=== PATIENT | female | born 1980 | race Caucasian/White ===

== ENCOUNTER → 2018-01-05 09:10 | Outpatient (CLI) | payer OTHER, SELFPAY ==
[2018-01-05 10:35] LABS: Anion Gap 7 (5-15); BUN 8 mg/dL (7-18); BUN/Creat Ratio 8.3 RATIO (10-20); Calcium,Total 8.3 mg/dL (8.5-10.1); Chloride 104 mmol/L (98-107); Cholesterol 164 mg/dL (200); Creatinine, Serum 0.96 mg/dL (0.55-1.02); EST Glomerular Filtration Rate 69 mL/min (>60); Est Glom Filt Rate - Afr Amer 84 mL/min (>60); Glucose 75 mg/dL (74-106); High Density Lipoprotein 68 mg/dL; Potassium 3.8 mmol/L (3.5-5.1); Sodium Level 137 mmol/L (136-145); Triglycerides 78 mg/dL; Very Low Density Lipoprotein 16 mg/dL (5-40)
[2018-01-06 15:47] LABS: Hemoglobin A1c 5.1 % (4.2-6.3)
== END ==
PROVIDERS: Family Provider Family Medicine; PCP Family Medicine; Visit Provider Family Medicine
DX: Z01.419 Encounter for gynecological examination (general) (routine) without abnormal findings (principal)
CPT/HCPCS: 36415; 80048; 80061; 83036

== ENCOUNTER 2018-02-15 11:39 | Outpatient (RCR) | payer OTHER, SELFPAY ==
--- NOTE | 2018-02-15 13:04 | HP.PTEVAL_ITS ---
Patient's Visit Information LEWIS MERAZ is a 37 year old F referred to Physical Therapy by Montserrat Leon MD with a diagnosis of muscle pain R leg pain. Date of Evaluation: 02/15/18 Physical Therapist: Neda Vega - Visit Plan Frequency: 1x/Week Duration: 4 Weeks Plan: 1X/ week per pt request with HEP to foam roll, stretch calf , HS and Quad , and strengthen R LE. May use massage and US as well. If pain does not subside witht he above look to assess LB and radicuopathy - Subjective Subjective: Last fall (around Nov) when started roller skating pt was getting a pain up the R lateral side of the calf and then from the knee up to the hip. Pt tries to do stretches and it comes and goes. She noticed that roller skating and skipped 2 weeks and she did not notice that it gotten any better. She noticed that had some discomfort with pushing pedel down but never really any issue. No N&T. Doesn't seem to be different with higher shoes but it feels better with better shoes. No trouble with bending and extending her knee. No meds and no x-rays. She does quite a bit of exercising and does a lot of standing and it bothers it the same. Somedays she does not feel it. She had a massage yesterday and Debo did not mention anything. - Pain R lateral lower leg pain Pain Intensity (Out of 10): 6 Pain Intensity Range: 8 - Objective Gait: normal gait pattern. Able to heel and toe raise. Palpation along the R lateral joint line and fibular head on the R side. Pt had a ffeling of discomfort with HS curls with green t-band X 10 and foam rolling lateral side of leg on the R. Calf tender points noted with foam rolling the calf. LE MMT: hip flex B 4/5, knee ext B 4+/5, knee flex B 4/5, B hip abd 4/5. tight gastroc complex B - Goals Goal 1:: I HEP Goal Time Frame: 2-4 Weeks Goal 2:: Be able to complete ADL's with no calf pain Goal Time Frame: 2-4 Weeks Goal 3:: No tenderness with palpation over the R lateral calf Goal Time Frame: 2-4 Weeks - Rehabilitation Potential Rehabilitation Potential: Good - Anticipated Interventions Patient/Client Instruction: Educate patient on: Condition, Plan of Care For the Purpose of:: To decrease pain, To decrease swelling/inflammation, To increase ROM, To improve nutrient delivery to tissue, To increase oxygenation perfusion, To improve muscle performance and motor function, To improve ability to perform ADL's, To increase tolerance to activity/condition/position Therapeutic Exercise to Include: Strength training, Endurance training, Flexibilty training, Gait and locomotor training, Passive ROM, Active ROM For the Purpose of:: To decrease pain, To decrease swelling/inflammation, To increase ROM, To improve nutrient delivery to tissue, To increase oxygenation perfusion, To improve muscle performance and motor function, To improve ability to perform ADL's, To increase tolerance to activity/condition/position, To improve performance and independence with ADL's Manual Therapy Techniques to Include: Passive ROM, Soft tissue mobilization For the Purpose of:: To decrease pain, To decrease swelling/inflammation, To increase ROM, To improve nutrient delivery to tissue IF ES: Yes Cryotherapy (ice pack, ice massage): Yes Thermo therapy (hot pack): Yes Ultrasound (thermal/non thermal): Yes For the Purpose of:: To decrease pain, To decrease swelling/inflammation, To increase ROM, To improve nutrient delivery to tissue Thank you for the opportunity to evaluate your patient. For Medicare and Medicare HMO plans, please review the plan of care and approve it. It will need to be FAXED BACK to us at [phone] for Medicare purposes. Please let me know if there are questions or concerns regarding this plan of care. Physician Signature: Date:
--- NOTE | 2018-06-30 12:52 | HP.PT.NRP ---
HP - Discharge Summary (1) - Patient Information LEWIS MERAZ was seen in my office for initial evaluation on 02/15/18. The following Plan of Care was established for this patient: Initial Frequency: 1x/Week Initial Duration: 4 Weeks - Anticipated Interventions Patient/Client Instruction: Educate patient on: Condition, Plan of Care For the Purpose of:: To decrease pain, To decrease swelling/inflammation, To increase ROM, To improve nutrient delivery to tissue, To increase oxygenation perfusion, To improve muscle performance and motor function, To improve ability to perform ADL's, To increase tolerance to activity/condition/position Therapeutic Exercise to Include: Strength training, Endurance training, Flexibilty training, Gait and locomotor training, Passive ROM, Active ROM For the Purpose of:: To decrease pain, To decrease swelling/inflammation, To increase ROM, To improve nutrient delivery to tissue, To increase oxygenation perfusion, To improve muscle performance and motor function, To improve ability to perform ADL's, To increase tolerance to activity/condition/position, To improve performance and independence with ADL's Manual Therapy Techniques to Include: Passive ROM, Soft tissue mobilization For the Purpose of:: To decrease pain, To decrease swelling/inflammation, To increase ROM, To improve nutrient delivery to tissue IF ES: Yes Cryotherapy (ice pack, ice massage): Yes Thermo therapy (hot pack): Yes Ultrasound (thermal/non thermal): Yes For the Purpose of:: To decrease pain, To decrease swelling/inflammation, To increase ROM, To improve nutrient delivery to tissue This patient was last seen in our office 02/15/18. Pertinent comments regarding their Physical therapy will appear below: DC PT as pt did not re-schedule after initial eval. At this point I will be discontinuing this patient from physical therapy. I would be happy to see this patient again in the future if found appropriate by the physician. Thank you! Neda Vega
== END 2018-02-15 19:00 | disposition home or self-care (01) ==
LOC: PT 11:39
PROVIDERS: Family Provider Family Medicine; PCP Family Medicine; Visit Provider Family Medicine
DX: M79.604 Pain in right leg (principal)
CPT/HCPCS: 97161

== ENCOUNTER → 2018-10-05 12:01 | Outpatient (CLI) | payer OTHER, SELFPAY ==
[2018-10-09 10:33] LABS: HPV Reflexed? NOT INDICATED
--- OUTSIDE RECORDS SUMMARY | 2018-11-21 07:17 | XMS RPT_ITS ---
:1980 Author Organization OHIP Care Team Providers Name Role Phone Yudith Beauchamp Attending Unavailable Yudith Beauchamp Referring Unavailable Jollkaz, Montserrat Primary Care Unavailable DOCTOR, OUT OF TOWN Attending Unavailable Jostellaiff, Montserrat Primary Care Unavailable Jolliff, Montserrat Attending Unavailable Jolliff, Montserrat Primary Care Unavailable Jolliff, Montserrat Referring Unavailable Jolliff, Montserrat Attending Unavailable Jolliff, Montserrat Primary Care Unavailable PROBLEMS PROBLEMS DATE TYPE CONDITION / CODE ATTENDING STATUS SOURCE 10/05/2018 Unknown Z12.4 - Yudith Beauchamp Active [place] Encounter for Community screening for Hospital malignant Repository neoplasm of cervix / Z12.4(ICD-10) 06/30/2018 Unknown M79.604 - Pain Montserrat Leon Active [place] in right leg / Community M79.604(ICD-10) Hospital Repository PROCEDURES PROCEDURES No Procedure Records FoundRESULTS RESULTS PROGRESS Observed: 11/03/2018 Status: COMPLETED Source: [place] 8:48 AM [facility] REPOSITORY HNO ID: [id number] Author: Linette Mendoza) Gissel Service: (none) Author Type: Nurse Practitioner Type: Progress Notes Filed: 11/03/2018 8:54 AM Note Text: Subjective HPI Pearl Meraz is a 38 year old female who presents with bilateral eye redness and drainage. Eyes feel itchy. Her grandmother had pinkeye this week. Review of Systems Constitutional: Negative. Negative for fever. HENT: Negative for congestion and sore throat. Eyes: Positive for discharge and redness. Respiratory: Negative. Negative for cough. BP 120/80 Pulse 74 Temp 36.9 ?C (98.4 ?F) (Left Tympanic) Resp 16 Wt 67.1 kg (148 lb) SpO2 99% No past medical history on file. PAST SURGICAL HISTORY Procedure Laterality Date - PAST SURGICAL HISTORY OF appendectomy ALLERGIES Patient has no known allergies. MEDICATIONS ETHINYL ESTRADIOL/DROSPIRENONE (MARIAN 28 ORAL) Take by mouth. benzonatate (TESSALON PERLE) 100 mg capsule Take 1 capsule by mouth three times daily as needed for Cough. trimethoprim-polymyxin eye drops (POLYTRIM) ophthalmic solution Use 1 Drop in the right eye four times daily. venlafaxine XR (EFFEXOR XR) 150 mg 24 hr capsule Take 150 mg by mouth once daily. FAMILY HISTORY Problem Relation Age of Onset - Heart Maternal Grandmother - Heart Maternal Grandfather Social History Substance Use Topics - Smoking status: Never Smoker - Smokeless tobacco: Never Used - Alcohol use No Objective Physical Exam Constitutional: She is well-developed, well-nourished, and in no distress. HENT: Right Ear: Tympanic membrane, external ear and ear canal normal. Left Ear: Tympanic membrane, external ear and ear canal normal. Nose: Nose normal. No rhinorrhea. Mouth/Throat: Uvula is midline, oropharynx is clear and moist and mucous membranes are normal. No posterior oropharyngeal edema or posterior oropharyngeal erythema. Eyes: Pupils are equal, round, and reactive to light. EOM are normal. Right eye exhibits discharge. Right conjunctiva is injected. Left conjunctiva is injected. Neurological: She is alert. Skin: Skin is warm and dry. Nursing note and vitals reviewed. ASSESSMENT/PLAN: 1. Acute bacterial conjunctivitis of right eye - ICD9: 372.03, ICD10: H10.31 - see medication orders - course and contagiousness issues discussed, including hand washing. - Instructed to call if high fever, development of periorbital redness or swelling, eye pain, visual changes, concerns or if symptoms persist. - POLYMYXIN B SULFATE 10,000 UNIT-TRIMETHOPRIM 1 MG/ML EYE DROPS - Follow-up with your PCP in 3-5 days if symptoms have not improved or sooner if symptoms worsen - Discussed red flags and need for immediate medical evaluation if any occur. - Discussed supportive care treatment with fluids, rest and analgesia. - Discussed expected course of illness Linette Chauhan APRN.CNP CNOV Observed: 11/03/2018 Status: COMPLETED Source: [place] 8:45 AM [facility] REPOSITORY Office Visit (WSTR) KTPEARL Hannah ([id number]) 1980 F Date Time Provider Department 11/03/18 8:45 AM LINETTE CHAUHAN ([facility]) [facility] During your visit today, we recorded the following information about you: Temperature Pulse Respiration Blood pressure 98.4 degrees 74/minute 16/minute 120/80 Weight 67.1 kg Linette Chauhan APRN.CNP 11/03/2018 8:54 AM Signed Subjective HPI Pearlebony Meraz is a 38 year old female who presents with bilateral eye redness and drainage. Eyes feel itchy. Her grandmother had pinkeye this week. Review of Systems Constitutional: Negative. Negative for fever. HENT: Negative for congestion and sore throat. Eyes: Positive for discharge and redness. Respiratory: Negative. Negative for cough. BP 120/80 Pulse 74 Temp 36.9 ?C (98.4 ?F) (Left Tympanic) Resp 16 Wt 67.1 kg (148 lb) SpO2 99% No past medical history on file. PAST SURGICAL HISTORY Procedure Laterality Date - PAST SURGICAL HISTORY OF appendectomy ALLERGIES Patient has no known allergies. MEDICATIONS ETHINYL ESTRADIOL/DROSPIRENONE (MARIAN 28 ORAL) Take by mouth. benzonatate (TESSALON PERLE) 100 mg capsule Take 1 capsule by mouth three times daily as needed for Cough. trimethoprim-polymyxin eye drops (POLYTRIM) ophthalmic solution Use 1 Drop in the right eye four times daily. venlafaxine XR (EFFEXOR XR) 150 mg 24 hr capsule Take 150 mg by mouth once daily. FAMILY HISTORY Problem Relation Age of Onset - Heart Maternal Grandmother - Heart Maternal Grandfather Social History Substance Use Topics - Smoking status: Never Smoker - Smokeless tobacco: Never Used - Alcohol use No Objective Physical Exam Constitutional: She is well-developed, well-nourished, and in no distress. HENT: Right Ear: Tympanic membrane, external ear and ear canal normal. Left Ear: Tympanic membrane, external ear and ear canal normal. Nose: Nose normal. No rhinorrhea. Mouth/Throat: Uvula is midline, oropharynx is clear and moist and mucous membranes are normal. No posterior oropharyngeal edema or posterior oropharyngeal erythema. Eyes: Pupils are equal, round, and reactive to light. EOM are normal. Right eye exhibits discharge. Right conjunctiva is injected. Left conjunctiva is injected. Neurological: She is alert. Skin: Skin is warm and dry. Nursing note and vitals reviewed. ASSESSMENT/PLAN: 1. Acute bacterial conjunctivitis of right eye - ICD9: 372.03, ICD10: H10.31 - see medication orders - course and contagiousness issues discussed, including hand washing. - Instructed to call if high fever, development of periorbital redness or swelling, eye pain, visual changes, concerns or if symptoms persist. - POLYMYXIN B SULFATE 10,000 UNIT-TRIMETHOPRIM 1 MG/ML EYE DROPS - Follow-up with your PCP in 3-5 days if symptoms have not improved or sooner if symptoms worsen - Discussed red flags and need for immediate medical evaluation if any occur. - Discussed supportive care treatment with fluids, rest and analgesia. - Discussed expected course of illness AMBER Jean APRN.CNP 11/03/2018 8:51 AM Signed ASSESSMENT/PLAN: 1. Acute bacterial conjunctivitis of right eye - ICD9: 372.03, ICD10: H10.31 - see medication orders - course and contagiousness issues discussed, including hand washing. - Instructed to call if high fever, development of periorbital redness or swelling, eye pain, visual changes, concerns or if symptoms persist. - POLYMYXIN B SULFATE 10,000 UNIT-TRIMETHOPRIM 1 MG/ML EYE DROPS - Follow-up with your PCP in 3-5 days if symptoms have not improved or sooner if symptoms worsen - Discussed red flags and need for immediate medical evaluation if any occur. - Discussed supportive care treatment with fluids, rest and analgesia. - Discussed expected course of illness Linette Chauhan APRN.KEYLINER CONJUNCTIVITIS GENERAL INFORMATION: Conjunctivitis is also known as pink eye. It is an irritation of the underside of the eyelid and the white part of the eye. Conjunctivitis can be caused by infection, chemical irritation, or allergy. If infectious, it is very contagious. INSTRUCTIONS: The doctor has prescribed antibiotic drops or ointment. Use them as prescribed. Do not touch the dropper to the eye. Throw out the medication after completing treatment. If the doctor only prescribed the medication to be placed in one eye, and the other eye starts to bother you with the same symptoms, you may treat it in the same fashion. To ease discomfort, apply a warm or cool clean washcloth to your eye several times a day for 10 to 20 minutes. Gently wipe away discharge from the eyes with tissues. Wash your hands often with soap and use paper towels to dry them. Do not share towels, washcloths, or pillows. This could spread infection. Do not use eye make-up until the infection has resolved. Keep contact lenses out of eyes until the irritation is gone. Discard any eye make-up which you may have contaminated before the infection was diagnosed, and any eye make-up older than one year. Children should not return to school or daycare until the eye is no longer pink. Do not drive or operate machinery if your vision is blurred. Wear sunglasses if your eyes are sensitive to the light. CONTACT YOUR DOCTOR IF YOU OR YOUR CHILD NOTICE: *The eye is still pink 3 days after starting treatment with medicine. *Pain in the eye increases. *The redness is spreading. *Vision becomes blurred. *You have a temperature over 100.5 F (38 C). Referring Provider: SELF [200] Allergies As of Date: 11/03/2018 (No Known Allergies) Date Reviewed: 11/03/2018 Reviewed by: Linette ([facility]) Gissel - Fully Assessed Reason for Visit: Eye Problem [43] Visit Diagnosis:Acute bacterial conjunctivitis of right eye [H10.31] Order(s):trimethoprim-polymyxin eye drops (POLYTRIM) ophthalmic solutionUse 1 Drop in both eyes four times daily.Disp: 1 BottleRfl: 0 Prescriptions as of 11/03/2018 Sig: MARIAN 28 ORAL Take by mouth. 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 Acute bacterial conjunctivitis of right eye - ICD9: 372.03, ICD10: H10.31 - see medication orders - course and contagiousness issues discussed, including hand washing. - Instructed to call if high fever, development of periorbital redness or swelling, eye pain, visual changes, concerns or if symptoms persist. - POLYMYXIN B SULFATE 10,000 UNIT-TRIMETHOPRIM 1 MG/ML EYE DROPS - Follow-up with your PCP in 3-5 days if symptoms have not improved or sooner if symptoms worsen - Discussed red flags and need for immediate medical evaluation if any occur. - Discussed supportive care treatment with fluids, rest and analgesia. - Discussed expected course of illness Linette Chauhan APRN.[facility] CONJUNCTIVITIS GENERAL INFORMATION: Conjunctivitis is also known as pink eye. It is an irritation of the underside of the eyelid and the white part of the eye. Conjunctivitis can be caused by infection, chemical irritation, or allergy. If infectious, it is very contagious. INSTRUCTIONS: The doctor has prescribed antibiotic drops or ointment. Use them as prescribed. Do not touch the dropper to the eye. Throw out the medication after completing treatment. If the doctor only prescribed the medication to be placed in one eye, and the other eye starts to bother you with the same symptoms, you may treat it in the same fashion. To ease discomfort, apply a warm or cool clean washcloth to your eye several times a day for 10 to 20 minutes. Gently wipe away discharge from the eyes with tissues. Wash your hands often with soap and use paper towels to dry them. Do not share towels, washcloths, or pillows. This could spread infection. Do not use eye make-up until the infection has resolved. Keep contact lenses out of eyes until the irritation is gone. Discard any eye make-up which you may have contaminated before the infection was diagnosed, and any eye make-up older than one year. Children should not return to school or daycare until the eye is no longer pink. Do not drive or operate machinery if your vision is blurred. Wear sunglasses if your eyes are sensitive to the light. CONTACT YOUR DOCTOR IF YOU OR YOUR CHILD NOTICE: *The eye is still pink 3 days after starting treatment with medicine. *Pain in the eye increases. *The redness is spreading. *Vision becomes blurred. *You have a temperature over 100.5 F (38 C). Prescriptions ordered this encounter Disp Refills Start End POLYMYXIN B SULFATE 10,000 UNIT-TRIM* 1 Azar* 0 11/03/2018 Route: BOTH EYES Sig: Use 1 Drop in both eyes four times daily. Medications Discontinued During This Encounter benzonatate (TESSALON PERLE) 100 mg * 30 c* 0 08/24/2016 11/03/2018 Route: ORAL Sig: Take 1 capsule by mouth three times daily as needed for Cough. Disc: Reason for discontinue is not on file. venlafaxine XR (EFFEXOR XR) 150 mg 2* 11/03/2018 Class: Historical Med Route: ORAL Sig: Take 150 mg by mouth once daily. Disc: Reason for discontinue is not on file. trimethoprim-polymyxin eye drops (PO* 1 Azar* 0 01/01/2016 11/03/2018 Route: RIGHT EYE Sig: Use 1 Drop in the right eye four times daily. Disc: Reason for discontinue is not on file. Encounter Status:Closed by LINETTE CHAUHAN on 11/03/18 PAP I-G W/RFX HRHPV Collected: 10/05/2018 Status: F Source: [place] 10:50 AM [facility] REPOSITORY Order Comment: CYTOLOGY INFORMATION: - CLINICAL INFORMATION: - DATE LMP/MENOPAUSE: [id number] LMP - COLLECTION VIAL: Thin Prep Vial - CAMP HOUSEKEEPER SOURCE: CERVICAL/ENDOCERVICAL - COLLECTION TECHNIQUE: BRUSH/SPATULA Specimen Comment: [id number] Specimen Comment: Source.............Cervix;Endocervix Specimen Comment: LMP / Prev Treat...EIP=[id number] Specimen Comment: No. of containers..01 ThinPrep Vial TYPE CODE TESTS RESULT OUT OF RANGE REFERENCE UNITS LAB L7400.0800 . Normal DIAGN Comment Result Comment: NEGATIVE FOR INTRAEPITHELIAL LESION AND MALIGNANCY. THIS SPECIMEN WAS RESCREENED PART OF OUR LAW WRITER PROGRAM. LAB L7400.0900 . Normal ADEQ Comment Result Comment: Satisfactory for evaluation. Endocervical and/or squamous metaplastic cells (endocervical component) are present. Areas of partially obscuring inflammtory exudate are present. LAB L7400.1400 . Normal PERFORM Comment Result Comment: Morris Yates, Figure Clerk (ASCP) LAB L7400.1500 . Normal QC Comment REV Result Comment: Sabra Wilkinson, Supervisory Figure Clerk (ASCP) LAB L7400.2575 . Normal TEST METHOD Comment Result Comment: This liquid based ThinPrep(R) pap test was screened with the use of an image guided system. LAB L7400.2600 . Normal . COMM LAB L7400.2700 . Normal PAPSMR Comment Result Comment: The Pap smear is a screening test designed to aid in the detection of premalignant and malignant conditions of the uterine cervix. It is not a diagnostic procedure and should not be used as the sole means of detecting cervical cancer. Both false-positive and false-negative reports do occur. LAB L7400.2800 . Normal HPV RFLX Comment Result Comment: The HPV DNA reflex criteria were not met with this specimen result therefore, no HPV testing was performed. Performed at: [address] [id number] Trim Mounter: Claire Dickson MD, Phone: [phone] Performed By: #### L7400.0350 #### [facility] (refer to report for specific site) refer to report for address and phone number PROGRESS Observed: 09/08/2018 Status: COMPLETED Source: [place] 8:27 AM [facility] REPOSIT[facility] O ID: [id number] Author: Kristian (Rn) BELGICA Casillas Service: (none) Author Type: Registered Nurse Type: Progress Notes Filed: 09/08/2018 8:29 AM Note Text: 38 year old female here for INACTIVATED INFLUENZA VACCINE. 1125-8415 Season Patient is identified by name and date of : Yes [] CONTRAINDICATIONS color enhanced section Age less than 6 months? No Allergy to eggs, chicken, chicken feathers, or chicken dander? No Allergy to thimerosal (a preservative) or formaldehyde, gelatin? No History of severe reaction to any vaccine component or a previous dose of influenza vaccination? No History of Guillain-Parsons Syndrome within 6 weeks after a previous influenza vaccine? No Patient is not moderately or severely ill? No Current temperature greater or equal to 100.4F? No History of Bone Marrow Transplant prior 6 months or solid organ transplant in the past 3 months ? No History of fainting after a prior injection or medical procedure? No- ? If patient has fainted in the past, the CDC recommends sitting or lying down for 15 minutes after the vaccination. [] VERIFICATION color enhanced section Was the answer Yes for any of the above contraindications? No contraindications present. Acceptable to proceed with vaccine. Patient/guardian agrees the above answers are true to the best of their knowledge? Yes Flu vaccine information sheet given? Yes [facility]izations admin[facility] today. Patient age: [age] year old For The 8770-1795 Flu Season 6-35 months old: Fluzone 0.25 ml - IM (Preservative Free) 3 years of age: Fluzone 0.5 ml - IM (Preservative Free) 3 years and older: Fluzone 0.5 ml- IM-(with Preservatives) 65+ years old: 2-49 years old Fluzone High-Dose 0.5 ml - IM (Preservative Free) FLUMIST- intranasal REMEMBER: If patient is less than 9 years of age and this is the first vaccine of Influenza to be received in any flu season, they should receive a second dose in one months time. CNNURSE Observed: 09/07/2018 Status: COMPLETED Source: [place] 3:00 PM [facility] RE[facility] Nurse Visit (PEDSWS) PEARL MERAZ ([id number]) 1980 F Date Time Provider Department 09/07/18 3:00 PM [facility] During your visit today, we recorded the following information about you: Temperature 99.5 degrees Kristian Casillas, RN, RN 09/08/2018 8:29 AM Signed 38 year old female here for INACTIVATED INFLUENZA VACCINE. 0514-9678 Season Patient is identified by name and date of : Yes [] CONTRAINDICATIONS color enhanced section Age less than 6 months? No Allergy to eggs, chicken, chicken feathers, or chicken dander? No Allergy to thimerosal (a preservative) or formaldehyde, gelatin? No History of severe reaction to any vaccine component or a previous dose of influenza vaccination? No History of Guillain-Parsons Syndrome within 6 weeks after a previous influenza vaccine? No Patient is not moderately or severely ill? No Current temperature greater or equal to 100.4F? No History of Bone Marrow Transplant prior 6 months or solid organ transplant in the past 3 months ? No History of fainting after a prior injection or medical procedure? No- ? If patient has fainted in the past, the CDC recommends sitting or lying down for 15 minutes after the vaccination. [] VERIFICATION color enhanced section Was the answer Yes for any of the above contraindications? No contraindications present. Acceptable to proceed with vaccine. Patient/guardian agrees the above answers are true to the best of their knowledge? Yes Flu vaccine information sheet given? Yes See immunization activity in [facility] for details of immunizations adminstered today. Patient age: [age] year old For The 2968-6376 Flu Season 6-35 months old: Fluzone 0.25 ml - IM (Preservative Free) 3 years of age: Fluzone 0.5 ml - IM (Preservative Free) 3 years and older: Fluzone 0.5 ml- IM-(with Preservatives) 65+ years old: 2-49 years old Fluzone High-Dose 0.5 ml - IM (Preservative Free) FLUMIST- intranasal REMEMBER: If patient is less than 9 years of age and this is the first vaccine of Influenza to be received in any flu season, they should receive a second dose in one months time. Referring Provider: SELF [200] Allergies As of Date: 09/07/2018 (No Known Allergies) Date Reviewed: 08/24/2016 Reviewed by: Shelbie Stacy X Ray Physician - Fully Assessed Reason for Visit: Imm/Inj [58] Cmt: Flu Vaccine Primary Visit Diagnosis:Need for vaccination [Z23] Order(s):INFLUENZA VACCINE QUADRIVALENT AGE 3 YRS PLUS + IM [[id number]] Order #: [id number] Prescriptions as of 09/07/2018 Sig: BENZONATATE 100 MG CAPSULE Take 1 capsule by mouth three* POLYMYXIN B SULFATE 10,000 UN* Use 1 Drop in the right eye f* VENLAFAXINE ER 150 MG CAPSULE* Take 150 mg by mouth once johanna* MARIAN 28 ORAL Take by mouth. 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 [place] [address] Fax REHABILITATION SERVICES INITIAL EVALUATION MR#: [id number] Acct: [id number] Name: PEARL MERAZ Rep #: [id number] : 1980 37 From: Neda Vega MPT Referring Dr.: Montserrat Leon MD Status: REG RCR Insurance: [employer] SELF PAY INSURANCE Patient's Visit Information PEARL MERAZ is a 37 year old F referred to Physical Therapy by Montserrat Leon MD with a diagnosis of muscle pain R leg pain. Date of Evaluation: 02/15/18 Physical Therapist: Neda Vega - Visit Plan Frequency: 1x/Week Duration: 4 Weeks Plan: 1X/ week per pt request with HEP to foam roll, stretch calf , HS and Quad, and strengthen R LE. May use massage and US as well. If pain does not subside witht he above look to assess LB and radicuopathy - Subjective Subjective: Last fall (around Nov) when started roller skating pt was getting a pain up the R lateral side of the calf and then from the knee up to the hip. Pt tries to do stretches and it comes and goes. She noticed that roller skating and skipped 2 weeks and she did not notice that it gotten any better. She noticed that had some discomfort with pushing pedel down but never really any issue. No N AND T. Doesn't seem to be different with higher shoes but it feels better with better shoes. No trouble with bending and extending her knee. No meds and no x-rays. She does quite a bit of exercising and does a lot of standing and it bothers it the same. Somedays she does not feel it. She had a massage yesterday and Debo did not mention anything. - Pain R lateral lower leg pain Pain Intensity (Out of 10): 6 Pain Intensity Range: 8 - Objective Gait: normal gait pattern. Able to heel and toe raise. Palpation along the R lateral joint line and fibular head on the R side. Pt had a ffeling of discomfort with HS curls with green t-band X 10 and foam rolling lateral side of leg on the R. Calf tender points noted with foam rolling the calf. LE MMT: hip flex B 4/5, knee ext B 4+/5, knee flex B 4/5, B hip abd 4/5. tight gastroc complex B - Goals Goal 1:: I HEP Goal Time Frame: 2-4 Weeks Goal 2:: Be able to complete ADL's with no calf pain Goal Time Frame: 2-4 Weeks Goal 3:: No tenderness with palpation over the R lateral calf Goal Time Frame: 2-4 Weeks - Rehabilitation Potential Rehabilitation Potential: Good - Anticipated Interventions Patient/Client Instruction: Educate patient on: Condition, Plan of Care For the Purpose of:: To decrease pain, To decrease swelling/inflammation, To increase ROM, To improve nutrient delivery to tissue, To increase oxygenation perfusion, To improve muscle performance and motor function, To improve ability to perform ADL's, To increase tolerance to activity/condition/position Therapeutic Exercise to Include: Strength training, Endurance training, Flexibilty training, Gait and locomotor training, Passive ROM, Active ROM For the Purpose of:: To decrease pain, To decrease swelling/inflammation, To increase ROM, To improve nutrient delivery to tissue, To increase oxygenation perfusion, To improve muscle performance and motor function, To improve ability to perform ADL's, To increase tolerance to activity/condition/position, To improve performance and independence with ADL's Manual Therapy Techniques to Include: Passive ROM, Soft tissue mobilization For the Purpose of:: To decrease pain, To decrease swelling/inflammation, To increase ROM, To improve nutrient delivery to tissue IF ES: Yes Cryotherapy (ice pack, ice massage): Yes Thermo therapy (hot pack): Yes Ultrasound (thermal/non thermal): Yes For the Purpose of:: To decrease pain, To decrease swelling/inflammation, To increase ROM, To improve nutrient delivery to tissue Thank you for the opportunity to evaluate your patient. For Medicare and Medicare HMO plans, please review the plan of care and approve it. It will need to be FAXED BACK to us at [phone] for Medicare purposes. Please let me know if there are questions or concerns regarding this plan of care. Physician Signature: Date: <Electronically signed by Neda Vega MPT> 02/17/18 1209 CC: Montserrat Leon MD Signed For Medicare only, by signing this I certify the plan of care. Physicians Signature Date HEMOGLOBIN A1C Collected: 01/06/2018 Status: F Source: PAGE 9:12 AM [facility] REPOSITORY Order Comment: PLEASE ADD A1C TO BLOOD DRAWN 01/05/18 PER XTRA PURPLE WAS DRAWN AND SHOULD BE STORED IN THE LAB.JV TYPE CODE TESTS RESULT OUT OF RANGE REFERENCE UNITS LAB L501.9985 4.2-6.3 % Normal HGB A1C 5.1 Performed By: #### L501.9985 #### [facility] [address], [address] BASIC METABOLIC Collected: 01/05/2018 Status: F Source: PAGE PROFILE (BMP) 9:12 AM [facility] REPOSITORY TYPE CODE TESTS RESULT OUT OF RANGE REFERENCE UNITS LAB L501.0100 74-106 mg/dL Normal GLU 75 Result Comment: Please note revised GLUCOSE reference range effective 2017. LAB L501.1000 7-18 mg/dL Normal BUN 8 LAB L501.1100 0.55-1.02 mg/dL Normal CREAT,SERUM 0.96 Result Comment: The validity of the calculated GFR AND GFRAA in patients over 70 years has not been determined. Clinical correlation is essential. LAB L501.1110 >60 mL/min Normal EST GFR 69 Result Comment: Non- GFR Calc LAB L501.1115 >60 mL/min Normal EST GFR - AA 84 Result Comment: GFR Calc LAB L501.1300 10-20 RATIO Low BUN/CRE 8.3 LAB L501.2200 8.5-10.1 mg/dL Low CA 8.3 LAB L501.5300 136-145 mmol/L Normal NA 137 LAB L501.5600 3.5-5.1 mmol/L Normal K 3.8 LAB L501.5900 98-107 mmol/L Normal CL 104 LAB L501.6100 21.0-32.0 mmol/L Normal CO2 26.0 LAB L501.6200 5-15 Normal GAP 7 Performed By: #### L500.2500, L500.4100 #### [facility] [address] [place], [address] LIPID PROFILE Collected: 01/05/2018 Status: F Source: BROUSSARD 9:12 AM [facility] REPOSITORY TYPE CODE TESTS RESULT OUT OF RANGE REFERENCE UNITS LAB L501.4900 200 mg/dL Normal CHOL 164 Result Comment: <200 mg/dL Desirable 200-240 mg/dL Borderline >240 mg/dL High Risk LAB L501.5000 mg/dL Normal TRIG 78 Result Comment: The drugs N-Acetylcysteine and Metamizole may falsely depress this assay. Serum Triglycerides Reference Interval Normal <150 mg/dL Borderline high 150 - 199 mg/dL High 200 - 499 mg/dL Very High > or = 500 mg/dL LAB L501.6400 mg/dL Normal HDL 68 Result Comment: The drugs N-Acetylcysteine and Metamizole may falsely depress this assay. Reference Range HDL <40 mg/dL Low HDL Cholesterol HDL >or= 60 mg/dL High HDL Cholesterol LAB L501.6500 0-130 mg/dL Normal LDL 80 LAB L501.6600 5-40 mg/dL Normal VLDL 16 Performed By: #### L500.2500, L500.4100 #### [facility] [address] [facility], [address] ALLERGIES ALLERGIES DATE TYPE / CODE NAME / CODE REACTION SEVERITY SOURCE Drug NO KNOWN [facility] Class/00980 ALLERGIES [address] [place] 1003(SNOMED Repository CT) ENCOUNTERS ENCOUNTERS ADMIT/DISCHARGE ACCOUNT ADMITTING ENCOUNTER LOCATION SOURCE NUMBER CLASS 11/03/2018/11/03/19 [id number] Ambulatory [place] [facility] Repository 10/31/2018 [id number] [facility] ing:MASS Repository 10/05/2018 [id number] [facility] ing:LABSPEC Repository 09/07/2018/09/11/20 [id number] Ambulatory [place] [facility] Repository 02/15/2018/02/16/[id number] ing:PT Repository 01/05/2018 [id number] [facility] ing:MFPLAB Repository PAYERS PAYERS ENCOUNTER GUARANTOR PAYER SUBSCRIBER SOURCE 10/31/2018 MICHELLE N Primary NOT GIVENUNK [address] [id number] Insurance:SELF PAY [place], [place] Number: Effective Repository [id number]: ([phone]) Date:2016-11-15 [phone] () 10/05/2018 MICHELLE N Primary MICHELLE N [place] [id number] Insurance:CORESOURCEP FOXXDOB: [facility] [place]: [id number] [id number] Repository [address]Aat: ([phone]) Date:[id number] [phone] (HP) [address]. [address]RIAN SOLIZ [id number]: 10/05/2018 Secondary NOT GIVENUNK [place] Insurance:SELF PAY [facility] Number: Effective Repository Date:2018-10-05 02/15/2018 MICHELLE N Primary MICHELLE N [place] [id number] Insurance:CORESOURCEP FOXXDOB: [facility] [place]: [id number] [id number] Repository [address]Hif: ([phone]) Date:[id number] [phone] (HP) [address] [id number]: 02/15/2018 Secondary NOT GIVENUNK [place] Insurance:SELF PAY [facility] Number: Effective Repository Date:2018-01-04 01/05/2018 MICHELLE N Primary MICHELLE N [place] [id number] Insurance:CORESOURCEP FOXXDOB: [facility] Number: [id number] [id number] Repository [address]Yhb: ([phone]) Date:[id number] [phone] () [address] [id number]: 01/05/2018 Secondary NOT GIVENUNK [place] Insurance:SELF PAY [facility] Number: Effective Repository Date:2018-01-05
== END ==
PROVIDERS: Family Provider Family Medicine; PCP Family Medicine; Referring Provider Obstetrics & Gynecology; Visit Provider Obstetrics & Gynecology
DX: Z12.4 Encounter for screening for malignant neoplasm of cervix (principal)
CPT/HCPCS: 88175; G0145

== ENCOUNTER → 2019-10-10 15:22 | Outpatient (CLI) | payer OTHER, SELFPAY ==
[2019-10-16 14:07] LABS: Age Gdln ACOG Testing 30-65 (.)
[2019-10-16 14:38] LABS: HPV APTIMA, High Risk Negative (Negative); HPV Reflexed? YES, CHARGE PATIENT
== END ==
PROVIDERS: Visit Provider Obstetrics & Gynecology
DX: Z12.4 Encounter for screening for malignant neoplasm of cervix (principal)
CPT/HCPCS: 87624; 88175; G0145

== ENCOUNTER 2019-12-24 14:14 | Emergency (ER) | payer OTHER, SELFPAY ==
[2019-12-24 14:15] VITALS: BP 127/81; PULSE 94; RESP 14; TEMP 37.1; O2SAT 99; BMI 28.7
--- NOTE | 2019-12-24 14:36 | VDUE_ITS ---
Reason For Study: Swelling Right Proximal Left Proximal Right jugular vein is spontaneous, widely Left jugular vein is spontaneous, widely patent, phasic, with no intraluminal patent, phasic, with no intraluminal echogenicity noted. echogenicity noted. Right subclavian vein is spontaneous, widely Left subclavian vein is spontaneous, widely patent, phasic, with no intraluminal patent, phasic, with no intraluminal echogenicity noted. echogenicity noted. Hypoechoic, non vascular structure noted Lt neck (in area of swelling) measuring 1.72cm x 1.0cm. Patient Safety Duplex of jugular veins per Dr. Greer. Interpretation Summary Patent and compressible bilateral internal jugular and subclavian veins without evidence for deep venous thrombosis. Hypoechoic possible cystic nonvascular left neck structure measuring 1.72 x 1 cm Ordering Physician: Salty Greer Referring Physician: Montserrat Leon Performed By: Faye Ni, JAYDON, RVT ?
[2019-12-24 15:00] LABS: Absolute Lymphocyte Count 2.12 X10^3/uL (0.83-4.51); Absolute Neutrophil Count 7.2 X10^3/uL (2.0-7.7); Basophil# 0.06 X10^3/uL; Basophil% 0.6 % (0-1); Eosinophil# 0.11 X10^3/uL; Eosinophils% 1.1 % (0-5); Hematocrit 40.1 % (37-47); Hemoglobin 13.2 g/dL (12.0-15.0); Lymphocyte # 2.12 X10^3/ul (4.0); Lymphocyte % 20.8 % (19-41); Mean Corp Hgb Conc 32.9 g/dL (32-36); Mean Corpuscular Volume 88.1 fL (81-99); Mean Platelet Vol. 10.2 fl (6.2-12.0); Monocyte# 0.66 X10^3/uL; Monocyte% 6.5 % (0-10); NRBC Flagged by Analyzer 0 % (0-5); Neutrophil # 7.23 X10^3/uL (2.7-7.7); Neutrophil % 70.7 % (47-70); Platelet Count 280 K/mm3 (150-450); RBC Distribution Width CV 12.2 % (11.6-14.6); RBC Distribution Width SD 39.3 fl (35.1-43.9); Red Blood Count 4.55 M/mm3 (4.2-5.4); White Blood Count 10.2 K/mm3 (4.4-11.0)
[2019-12-24 15:17] LABS: ALB/GLOB Ratio 0.9 RATIO (0.9-2.4); AST(SGOT) 10 U/L (15-37); Alanine Aminotransfer ALT/SGPT 20 U/L (13-56); Albumin, Serum 3.1 g/dL (3.2-5.0); Alkaline Phosphatase 44 U/L (45-117); Anion Gap 4 (5-15); BUN 16 mg/dL (7-18); BUN/Creat Ratio 15.8 RATIO (10-20); Calcium,Total 8.8 mg/dL (8.5-10.1); Chloride 106 mmol/L (98-107); Creatinine, Serum 1.01 mg/dL (0.55-1.02); EST Glomerular Filtration Rate 65 mL/min (>60); Est Glom Filt Rate - Afr Amer 78 mL/min (>60); Estimated Creatinine Clearance 59.15 ml/min; Globulin 3.4 g/dL (2.2-4.2); Glucose 90 mg/dL (74-106); Potassium 4.1 mmol/L (3.5-5.1); Protein, Total 6.5 g/dL (6.4-8.2); Sodium Level 139 mmol/L (136-145)
--- NOTE | 2019-12-24 15:53 | ED.DCSUM_ITS ---
History of Present Illness Chief Complaint: Abn Labs Narrative: Patient presenting for evaluation secondary to neck swelling. Patient is a otherwise healthy 39-year-old female with no past medical history stating that this morning she started to notice that she was having some swelling in the left side of her neck. This was not associated with any sort of infectious prodrome such as fever cough sore throat difficulty swallowing chills night sweats or unintended weight loss. She also states that this was not associated with any sort of specific injury, although she does work out pretty much every morning but she does not remember pulling any muscles or any pain neck during her workout this morning. Patient went to her primary care office, and had a CT scan with contrast ordered which showed abnormal swelling of the left neck with some phlegmonous changes going from the neck down to the mediastinum and some decreased flow in the external jugular vein. Patient was recommended to come to the emergency department. Patient denies any history of blood clots. She denies any chest pain or shortness of breath. Past Medical History - Allergies and Home Meds Allergies/Adverse Reactions: Allergies No Known Allergies Allergy (Verified 12/24/19 14:15) Primary Care Physician: Montserrat Leon MD [Primary Care Provider] - Past Medical History: None Lives: With Family Smoking Status: Never smoker Alcohol: None Drugs: None Review of Systems All systems negative except as indicated General: Denies: Chills, Fever, Sweats Eyes: Denies: Visual changes - bilaterally, Diplopia ENT: Reports: - - Neck swelling Cardiovascular: Denies: Chest pain, Palpitations Respiratory: Denies: Dyspnea, Cough, Dyspnea on exertion Gastrointestinal: Denies: Abdominal pain, Nausea, Vomiting, Diarrhea, Melena, Hematochezia Genitourinary: Denies: Dysuria, Hematuria, Frequency Musculoskeletal: Denies: Back pain, Extremity Pain Skin: Denies: Rash, Wounds Neurological: Denies: Headache, Weakness, Numbness Physical Exam Vital Signs/Narrative: Vital Signs Temp Pulse Resp BP Pulse Ox 12/24/19 14:15 98.8 F 94 14 127/81 H 99 Inital Vital Signs reviewed: Yes General: Well nourished, Well developed, No Acute Distress Head: Normocephalic, Atraumatic Eyes: Perrl, EOMI ENT: Moist mucous membranes, No rhinorrhea, - - Oropharynx is completely clear and patent without any evidence of posterior fullness, asymmetry, stridor, or difficulty swallowing. Neck: Supple, Nontender, - - Swelling is noted of the left side of the patient's neck with evidence of extension down into the level of the clavicle. No underlying fluctuance or induration. No skin changes such as erythema, no breaks in the skin. Normal range of motion of the neck. Cardiovascular: Regular rate, Regular rhythm, No murmurs Respiratory: No distress, CTA bilaterally, Chest nontender Abdomen: Soft, Nontender, Nondistended, Normal bowel sounds Back: Nontender, Normal Inspection Extremities: Nontender, No edema Skin: Normal color, No rash Neurological: Alert, Oriented x3, Cranial nerves II-XII grossly intact, Normal Strength, Normal Sensation Psychological: Normal affect, Normal Mood Diagnostic/Tx/Re-eval - Medical Decision Making Patient presented secondary to an abnormal CT scan of the neck. I obtained laboratory studies on the patient which showed no evidence of elevation of infl ammatory markers. Ultrasound was obtained of the neck which showed good flow of the patient's jugular and subclavian vessels, but did not visualize the external jugular vessels very well. I discussed patient's case on the telephone with ear nose and throat, and as the patient does not have any outward signs of respiratory compromise, swelling of the pharynx or the airway, or any inflammatory markers we do not feel that the patient requires admission at this time. Patient will be placed on prophylactic Augmentin. She was carefully educated on signs and symptoms which to return which she voiced understanding of in her own terms. Patient will follow-up with ear nose and throat. ED Disposition - Plan for ED Patient: Disposition: Home or Assisted Living Diagnosis: Neck swelling Instructions: CERVICAL ADENITIS, Antiobiotic Treatment Prescriptions: Amox/Clavulanate Tablet [Augmentin Tablet] 875 mg PO Q12H #20 tab Prescription Printed Referrals: Spenser Ching MD [STAFF PHYSICIAN] - As soon as possible
[2019-12-24 16:16] VITALS: BP 130/82; PULSE 86; RESP 18
== END 2019-12-24 16:17 | disposition home or self-care (01) ==
PROVIDERS: Emergency Provider Emergency Medicine; PCP Family Medicine
DX: R22.1 Localized swelling, mass and lump, neck (principal)
CPT/HCPCS: 80053; 85025; 93970; 99283; A4216

== ENCOUNTER → 2019-12-24 | Outpatient (CLI) | payer OTHER, SELFPAY ==
--- NOTE | 2019-12-24 12:16 | CT_ITS ---
STUDY: CT SOFT TISSUE NECK WITH CONTRAST REASON FOR EXAM: Female, 39 years old. SWELLING TO LEFT SIDE OF NECK RADIATION DOSAGE (If Supplied By Facility): CTDIvol = ( 18.49 ) mGy, DLP = ( 563.34 ) mGycm TECHNIQUE: The patient was scanned in a multi-detector CT scanner. High resolution transaxial imaging was performed following intravenous administration of IV 100mL Isovue-300. Sagittal and coronal images were reconstructed. Individualized dose optimization techniques were used for this CT. COMPARISON: None. FINDINGS: There is diffuse increased markings in the subcutaneous fat involving the left lower cervical region extending into the supraclavicular region and superior mediastinum at the level of the aortic arch and origin of the great vessels to the neck. There is also evidence of phlegmonous infiltration in the left lower neck extending into the left supraclavicular and left anterior chest wall with the cyst of the trachea towards the right side. An inflammatory process should be ruled out. Filling defects are seen within the left external jugular veins and surrounding tributaries. Correlation with the Doppler examination is recommended. Normal bilateral parotid glands. Normal bilateral art model spaces. Normal bilateral parapharyngeal spaces. Normal bilateral carotid spaces. Normal bilateral sublingual and submandibular glands and spaces. Normal visualized nasopharynx. Normal retropharyngeal space. Normal perivertebral space. Normal visualized bilateral faucial tonsils. The visualized tongue, tongue base and oropharynx are normal. The visualized cervical lymph nodes (levels I-) are within normal size limits, and maintain normal morphology. There is no demonstrated solid or cystic mass lesion. There is no abnormal contrast enhancement. Normal epiglottis, bilateral vallecula and hypopharynx. The pre-epiglottic and paraglottic adipose spaces are normal. Normal visualized bilateral piriform sinuses, aryepiglottic folds, vocal cords, and arytenoid-cricoid articulations. Normal subglottic trachea. Normal bilateral lobes of the thyroid gland. Normal visualized pulmonary apices. Normal visualized paranasal sinuses. Normal visualized cervical spine. CT/Soft Tissue Neck WITH Contrast IMPRESSION: Soft tissue swelling overlying the left lower neck and left supraclavicular and superior aspect of the anterior thoracic wall extending into the origin of the great vessels of the neck as described. Possible filling defects in the left external jugular vein. Correlation with the Doppler venous ultrasound is recommended. Electronically Signed: Jose A Jett, at 13:19 EST , Service support ,
== END | disposition home or self-care (01) ==
LOC: CT 12:02
PROVIDERS: PCP Family Medicine; Referring Provider Nurse Practitioner Family; Visit Provider Nurse Practitioner Family
DX: R22.1 Localized swelling, mass and lump, neck (principal)
CPT/HCPCS: 70491; Q9967

== ENCOUNTER → 2020-11-21 | Outpatient (CLI) | payer OTHER, SELFPAY ==
[2020-11-26 17:14] LABS: HPV APTIMA, High Risk Negative (Negative)
== END | disposition home or self-care (01) ==
LOC: LABSPEC 14:08
PROVIDERS: PCP Family Medicine; Visit Provider Student in an Organized Health Care Education/Training Program
DX: Z12.4 Encounter for screening for malignant neoplasm of cervix (principal)
CPT/HCPCS: 87624; 88175; G0145

== ENCOUNTER → 2021-01-01 12:58 | Outpatient (CLI) | payer OTHER, SELFPAY ==
--- NOTE | 2021-01-01 12:59 | BI_ITS ---
MAMMOGRAPHY - BILATERAL SCREENING REASON FOR EXAM: Female, 40 years old. Routine annual screening examination. PERTINENT HISTORY: Grandmother with breast cancer. TECHNIQUE: Digital bilateral breast grumeet (3D mammographic acquisition) in the CC and MLO projections. 2-D mediolateral oblique (MLO) and craniocaudad (CC) views of both breasts were obtained. CAD: Full Field Digital Mammography with Computer Added Detection was performed. COMPARISON: None. Baseline examination. FINDINGS: Breast Composition: The breasts are extremely dense, which lowers the sensitivity of mammography. There are no dominant masses or suspicious calcifications. No other significant abnormalities are identified. BI/SCRN MAMM (CAD)W/GURMEET BILAT IMPRESSION: Negative screening mammogram. Yearly followup mammogram recommended. (A) ASSESSMENT CATEGORY: BIRADS Category 1: Negative. A letter regarding these results will be sent to the patient by the facility within 30 days. Approximately 10% of breast cancers are not detected by mammography. A normal mammogram should not delay biopsy of a clinically suspicious abnormality. [id number] Electronically Signed: Jose A Jett MD at 12:34 EDT , Service support ,
== END ==
PROVIDERS: PCP Family Medicine; Referring Provider Student in an Organized Health Care Education/Training Program; Visit Provider Student in an Organized Health Care Education/Training Program
DX: Z12.31 Encounter for screening mammogram for malignant neoplasm of breast (principal)
CPT/HCPCS: 77063; 77067

== ENCOUNTER 2021-03-04 13:30 | Outpatient (RCR) | payer OTHER, SELFPAY ==
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
--- NOTE | 2021-03-04 18:16 | HP.PTDCSUM_ITS ---
It has been my pleasure to treat LEWIS MERAZ referred by Dr. Montserrat Leon MD, with the diagnosis of Cervicalgia and B knee sprain for a total of 3 visit(s). Discharge Date: 03/04/21 Please see the following information for a summary of their discharge status. Subjective: Pt reports that he neck is much better but the side of her calfs and knee still have tender points C-spine Pain Intensity (Out of 10): 0 B knee pain Pain Intensity (Out of 10): 1 % Improvement: 50 Objective/Function: Issued blue t-band for mid rows and clam shells for HEP Goal 1:: I HEP Goal 2:: Increase postrue to sit with better posture throughout her day and while in PT sessions Goal 3:: Increase Hip and knee strengthe by 1/2 muscle grade to help support knees (at time of eval:B LE MMT: B hip abd 4-/5, B hip ext 4-/5, B hip flex 4- /5, B knee ext 4/5, B knee flexion 4/5). Goal 4:: Decrease c-spine tightness by 50% Goal 5:: Decrease knee pain with touch by 50% Plan: DC PT to HEP Discharge Comments: DC PT as pt reports that she is feeling better If there are questions or concerns regarding this patient's physical therapy, please feel free to call me at [phone]. Thank you for the referral of this patient. Sincerely, Neda Vega, MPT
== END 2021-03-04 19:00 | disposition home or self-care (01) ==
LOC: PT 13:30
PROVIDERS: PCP Family Medicine; Referring Provider Family Medicine; Visit Provider Family Medicine
DX: M54.2 Cervicalgia (principal); S83.91XD Sprain of unspecified site of right knee, subsequent encounter; S83.92XD Sprain of unspecified site of left knee, subsequent encounter; X58.XXXD Exposure to other specified factors, subsequent encounter
CPT/HCPCS: 97110; 97161

== ENCOUNTER 2022-01-14 11:29 | Outpatient (CLI) | payer OTHER, SELFPAY ==
[2022-01-14 15:21] LABS: Anion Gap 4 (5-15); BUN 17 mg/dL (7-18); BUN/Creat Ratio 21.7 RATIO (10-20); Calcium,Total 9.1 mg/dL (8.5-10.1); Chloride 108 mmol/L (98-107); Creatinine, Serum 0.78 mg/dL (0.55-1.02); EST Glomerular Filtration Rate 86 mL/min (>60); Est Glom Filt Rate - Afr Amer 104 mL/min (>60); Glucose 87 mg/dL (74-106); Magnesium 2.6 mg/dL (1.6-2.6); Sodium Level 138 mmol/L (136-145)
== END 2022-01-14 23:59 | disposition home or self-care (01) ==
PROVIDERS: PCP Family Medicine; Referring Provider Family Medicine; Visit Provider Nurse Practitioner Family
DX: R25.3 Fasciculation (principal)
CPT/HCPCS: 36415; 80048; 83735

== ENCOUNTER 2022-01-15 21:12 | Observation (INO) | payer OTHER, SELFPAY ==
[2022-01-15 21:16] VITALS: BP 140/76; PULSE 120; RESP 22; TEMP 37.2; O2SAT 100; BMI 27.4
[2022-01-15 21:22] VITALS: BMI 29.2
--- NOTE | 2022-01-15 21:32 | EKG12_ITS ---
Test Reason : WEAKNESS Blood Pressure : / mmHG Vent. Rate : 068 BPM Atrial Rate : 068 BPM P-R Int : 146 ms QRS Dur : 084 ms QT Int : 426 ms P-R-T Axes : -03 059 053 degrees QTc Int : 452 ms Sinus rhythm with marked sinus arrhythmia Otherwise normal ECG Confirmed by ROMELIA NICOLAS, RUDY ([id number]), technical writer and editor HAILE SANZ ([id number]) on 01/19/2022 11:07:50 AM Referred By: Confirmed By:RUDY LEÓN MD
--- NOTE | 2022-01-15 21:33 | EDS_ITS ---
HPI History of Present Illness Chief Complaint: Dizziness Informant: patient and spouse/S.O. Onset/Context/Timing Onset: Today Current Severity: Mild Maximum Severity: Moderate Narrative Narrative: Patient presents secondary to dizziness and generalized weakness. Patient states that she was okay all day today. She is laying on the couch watching a movie tonight. When she try to get up she felt she could not move her left side. Patient is anxious and tearful. She reports having some mild nausea. Nursing staff states that when they brought her back to the room she was able to get in the bed and swing her legs up herself. She states it just feels very hard to move her arms or legs. [facility] Medical History Anxiety Depression Home Medications desog-e.estradiol/e.estradiol [Volnea (28)] 1 tab PO DAILY 01/15/22 [History Last Taken Unknown] Allergy/AdvReac Type Severity Reaction Status Date / Time No Known Allergies Allergy Verified 01/15/22 21:20 Surgical History (Updated 01/15/22 @ 21:24 by Trini Priest) History of appendectomy Social History Smoking Status: Never smoker ROS ROS ED Constitutional Constitutional ED: Denies chills or fever(s) Eyes Eyes: Denies change in vision ENT ENT ED: Denies sore throat Cardiovascular Cardiovascular: Reports chest pain Respiratory/Chest Respiratory/Chest: Denies cough or dyspnea Gastrointestinal Gastrointestinal: Reports nausea; Denies abdominal pain or vomiting Musculoskeletal Musculoskeletal: Denies back pain Integumentary Denies rash Neurologic Neurologic: Reports weakness; Denies headache(s) Psychiatric Psychiatric: Reports anxiety Allergic/Immunologic Allergic/Immunologic ED: Denies urticaria EXAM Physical Exam Const Vital Signs: 01/15/22 21:16 01/15/22 21:26 Temperature 98.9 F Temperature Source Temporal Pulse Rate 120 H Respiratory Rate 22 H Respiratory Effort Normal Respiratory Pattern Normal Blood Pressure 140/76 H Blood Pressure Mean 97 Pulse Ox 100 Oxygen Delivery Method Room Air Positive well nourished and well developed General Appearance ED: well developed HEENT Reports moist mucous membranes Eyes PERRL and EOMs intact bilaterally Neck supple Chest Wall inspection of chest normal and palpation of chest normal Resp normal respiratory effort and clear to auscultation bilaterally Cardio regular rate and regular rhythm GI non-tender Palpation: soft Neuro oriented x3 Neuro Narrative: Patient tearful with poor effort and holding her arms and legs off the bed. With coaching she is able to hold her arms and legs off the bed to a count of 5. Sensorium / Orientation: alert Psych Mood & Affect: tearful Skin no rashes or lesions noted MDM MDM MDM Narrative Medical decision making narrative: Lab work, EKG, CTA of the head and neck obtained. Lab Data Attestation: I reviewed the patient's lab results. Labs: Laboratory Results - last 24 hr 01/15/22 01/15/22 01/15/22 21:25 21:25 21:25 WBC 8.5 RBC 4.21 Hgb 12.8 Hct 36.8 L MCV 87.4 MCH 30.4 MCHC 34.8 RDW Std Deviation 39.3 RDW Coeff of Aleena 12.3 Plt Count 275 MPV 10.6 Immature Gran % (Auto) 0.200 Neut % (Auto) 40.4 L Lymph % (Auto) 48.2 H [place] % (Auto) 8.8 Eos % (Auto) 1.5 Baso % (Auto) 0.9 Absolute Neuts (auto) 3.4 Absolute Lymphs (auto) 4.07 Nucleated RBC % 0 Sodium 138 Potassium 3.7 Chloride 107 Carbon Dioxide 23.0 Anion Gap 8 BUN 20 H Creatinine 0.98 Estim Creat Clear Calc 59.75 Est GFR (MDRD) Af Amer 80 Est GFR (MDRD) Non-Af 66 BUN/Creatinine Ratio 20.4 H Glucose 102 Calcium 9.1 Troponin I High Sens < 3 L Serum , Qual NEGATIVE Radiography Diagnostic Testing: Clinical Impression(s) from Imaging Studies Head/Neck CTA 01/15/22 22:01 IMPRESSION: Unenhanced CT Brain: No acute intracranial abnormalities. CTA Head: No CT evidence of hemodynamically significant stenosis, aneurysm or malformation. CTA Neck: No CT evidence of hemodynamically significant stenosis, aneurysm or malformation. Individualized dose optimization techniques were used for this CT. at 2237 Reported and signed by: Michele Spivey MD Electronically Signed: Michele Spivey MD at 22:35 EDT , EKG Initial EKG: Attestation: I personally reviewed and interpreted this EKG as follows: Interpretation: Sinus Rhythm (Sinus at 68 with sinus arrhythmia. No acute ischemia.) Treatment and Re-Evaluation Narrative: Lab work is unremarkable. CTA of the head and neck is normal. Patient's evaluation at the time of my initial exam did not reveal findings consistent with an acute stroke. On repeat evaluation, she feels pretty much back to her normal self. Know that the patient is not as anxious I did ask her again about onset of symptoms. She states that she was laying on the sofa when she developed sudden onset of numbness and tingling only on the left side of her body. She states she did not feel like her side got weak until later. On arrival to the emergency room she stated that she could not move her left side, however nursing staff did note her getting up from the wheelchair and into the bed and moving her left side. Test results are discussed with the patient and at bedside. He states he has never seen her like this. I advised her out of extreme caution we could admit her to observation status and get an MRI in the morning to ensure no sign of TIA. She would feel more confident with thi s. I will speak with the hospitalist. Discharge Plan Dx/Rx/DC Orders Clinical Impression: Paresthesias, Weakness Disposition Disposition: Acute Care Hospital [facility]
[2022-01-15 21:42] LABS: Absolute Lymphocyte Count 4.07 X10^3/uL (0.83-4.51); Absolute Neutrophil Count 3.4 X10^3/uL (2.0-7.7); Basophil# 0.08 X10^3/uL; Basophil% 0.9 % (0-1); Eosinophil# 0.13 X10^3/uL; Eosinophils% 1.5 % (0-5); Hematocrit 36.8 % (37-47); Hemoglobin 12.8 g/dL (12.0-15.0); Lymphocyte # 4.07 X10^3/ul (0.83-4.51); Lymphocyte % 48.2 % (19-41); Mean Corp Hgb Conc 34.8 g/dL (32-36); Mean Corpuscular Hgb 30.4 pg (27.0-32.0); Mean Corpuscular Volume 87.4 fL (81-99); Mean Platelet Vol. 10.6 fl (6.2-12.0); Monocyte# 0.74 X10^3/uL; Monocyte% 8.8 % (0-10); NRBC Flagged by Analyzer 0 % (0-5); Neutrophil # 3.41 X10^3/uL (2.7-7.7); Neutrophil % 40.4 % (47-70); Platelet Count 275 K/mm3 (150-450); RBC Distribution Width CV 12.3 % (11.6-14.6); RBC Distribution Width SD 39.3 fl (35.1-43.9); Red Blood Count 4.21 M/mm3 (4.2-5.4); White Blood Count 8.5 K/mm3 (4.4-11.0)
--- NOTE | 2022-01-15 22:01 | CT_ITS ---
HISTORY: weakness and dizziness TECHNIQUE: Noncontrast axial images were obtained of the brain. Subsequently, routine carotid CT angiogram protocol was performed without and with IV contrast. In addition, images were obtained of the [place] of [place]. Nascet criteria using the distal ICAs for comparison were used for evaluation of stenoses. 3D reconstructions were reviewed. A radiation dose optimization technique was used for this scan. CTA imaging was [facility] by [facility] to enable computer-assisted triage and notification to rapidly detect a LVO and shorten time to notification. IV Contrast dosage and agent: 100mL Isovue-370 COMPARISON: None FINDINGS: --CT BRAIN: BRAIN PARENCHYMA: No intra- or extra-axial hemorrhage. No evidence of acute infarct. No intracranial mass or mass effect. There is preservation of the vang/white matter interface. Posterior fossa structures are unremarkable. CSF SPACES: Appropriate for age. No hydrocephalus. Basal cisterns are patent. CALVARIUM, SKULL BASE, PARANASAL SINUSES AND MASTOID AIR CELLS: Scattered mucoperiosteal thickening. No discrete lytic or blastic abnormalities. ORBITS: Both globes, extraocular muscles, optic nerves and retrobulbar fat appear unremarkable. ASPECTS Score for Acute Strokes: 10 --CTA NECK: AORTIC ARCH AND BRANCHES: Cervical vessel origins patent. RIGHT CCA: No occlusion, significant stenosis or dissection. RIGHT ICA: No occlusion, significant stenosis or dissection. LEFT CCA: No occlusion, significant stenosis or dissection. LEFT ICA: No occlusion, significant stenosis or dissection. RIGHT VERTEBRAL ARTERY: No occlusion, significant stenosis or dissection. LEFT VERTEBRAL ARTERY: No occlusion, significant stenosis or dissection. NECK SOFT TISSUES: Unremarkable. --CTA HEAD: --Anterior circulation: ICAs: No significant stenosis at the intracranial/visualized segments. ACAs: No significant stenosis at the visualized segments. ACOM: Present. MCAs: No significant stenosis at the visualized segments. --Posterior circulation: PCOMs: Again on the right sole stapler welt: No significant stenosis at the visualized segments. BASILAR ARTERY: No significant stenosis. VERTEBRAL ARTERIES: No significant stenosis at the intradural/visualized segments. No evidence of intracranial aneurysm or vascular malformation. CT/CTA Head AND Neck W/ Contrast IMPRESSION: Unenhanced CT Brain: No acute intracranial abnormalities. CTA Head: No CT evidence of hemodynamically significant stenosis, aneurysm or malformation. CTA Neck: No CT evidence of hemodynamically significant stenosis, aneurysm or malformation. Individualized dose optimization techniques were used for this CT. at 2237 Reported and signed by: Michele Spivey MD Electronically Signed: Michele Spivey MD at 22:35 EDT ,
[2022-01-15 22:06] LABS: Internal QC Validated? YES +Cl - CLEAR BKGD; Pregnancy, Serum, hCG Quali. NEGATIVE Negative
[2022-01-15] MEDS: 0.9% Normal Saline 1,000 ML 150 ML IV (22:06)
[2022-01-15 22:15] LABS: Anion Gap 8 (5-15); BUN 20 mg/dL (7-18); BUN/Creat Ratio 20.4 RATIO (10-20); Calcium,Total 9.1 mg/dL (8.5-10.1); Chloride 107 mmol/L (98-107); Creatinine, Serum 0.98 mg/dL (0.55-1.02); EST Glomerular Filtration Rate 66 mL/min (>60); Est Glom Filt Rate - Afr Amer 80 mL/min (>60); Estimated Creatinine Clearance 59.75 ml/min; Glucose 102 mg/dL (74-106); Potassium 3.7 mmol/L (3.5-5.1); Sodium Level 138 mmol/L (136-145); Troponin-I HS < 3 pg/mL (3.0-54.0)
--- NOTE | 2022-01-15 23:18 | PCM.HP.STD ---
HPI - General General Date of Admission: 01/15/22 Date of Service: 01/15/22 HPI Narrative LEWIS MERAZ, is a 41 F with history of anxiety depression with panic attack in the past came to ED for dizziness, chest tightness numbness tingling sensation on left upper extremity. About 1 week ago patient also had similar distress with chest tightness and palpitation and was told that she has panic attack. Today she was relaxing watching TV suddenly felt above symptoms. She denies vertigo. She also complains of occasional headache more like sinus headache or tension headache with aches and pain in neck and sinus area. Does not have migraine headache. Labs reviewed. Not remarkable. Twelve-lead EKG normal sinus rhythm with sinus arrhythmia at 68 bpm QTC 452 ms. Patient denies substance use or heavy alcohol use. She is not a smoker. Occasionally drinks on social occasions. ER physician called me to admit to rule out TIA/stroke. [facility] Medical History Anxiety Depression Home Medications drospirenone-ethinyl estradiol [MARIAN (28)] 1 tab PO DAILY 01/15/22 [History Last Taken Unknown] Allergy/AdvReac Type Severity Reaction Status Date / Time No Known Allergies Allergy Verified 01/15/22 21:20 Surgical History History of appendectomy Social History Smoking Status: Never smoker ROS ROS Narrative Constitutional: Reports fatigue. He stressed out HEENT: Reports systems reviewed and no addt'l complaints, except as documented Respiratory/Chest: Had some nonspecific chest tightness as mentioned in HPI. No shortness of breath. Gastrointestinal: Denies coffee ground emesis, hematemesis or vomiting Genitourinary: Denies burning urination or new urinary tract symptoms Musculoskeletal: Denies joint pain and limited range of motion Neurologic: Denies seizure-like activity. Sometimes headache admission HPI skin: No ulcer. No rash Endocrinology: Reports systems reviewed and no addt'l complaints, except as documented Hematologic/Lymphatic: Reports systems reviewed and no addt'l complaints, except as documented Rest 14 ROS are negative except as mentioned in HPI Vital Signs Vital Signs Vital Signs: 01/15/22 21:16 01/15/22 21:26 Temperature 98.9 F Temperature Source Temporal Pulse Rate 120 H Respiratory Rate 22 H Respiratory Effort Normal Respiratory Pattern Normal Blood Pressure 140/76 H Blood Pressure Mean 97 Pulse Ox 100 Oxygen Delivery Method Room Air Weight Weight: 160 lb 0.889 oz Body Mass Index (BMI) 29.2 Physical Exam Narrative General: Alert, Oriented x3, Cooperative HEENT: Atraumatic, PERRLA, EOMI, Normocephalic Oral: No Gingival or Mucosal Lesions/ Ulcerations Neck: Supple, No JVD, Negative Carotid Bruits Lungs: Air entry equal in bilateral lung bases. No crepitation/rhonchi Cardiovascular: Regular rate, Regular Rhythm, Normal S1, Normal S2, No murmurs Abdomen: Bowel Sounds Present, Soft, Non Tender, Non-Distended : No renal angle tenderness. No suprapubic tenderness. Extremities: No edema, Capillary Refill Less than 3 Seconds Skin: No rashes, No breakdown Musculoskeletal: No Tenderness to Palpation of Joints or Extremities. ROM full. Muscle strength 5/5 at major joints Neurological: Cranial nerves II-XII grossly intact, DTR 2+/4 and Symmetrical. No gross asymmetric changing touch, pressure or two-point discrimination. Psych/Mental Status: Normal Affect, Appropriate Results Lab / Micro Data Result Diagrams: 01/15/22 21:25 01/15/22 21:25 Labs: Laboratory Results - last 24 hr 01/15/22 21:25: WBC 8.5, RBC 4.21, Hgb 12.8, Hct 36.8 L, MCV 87.4, MCH 30.4, MCHC 34.8, RDW Std Deviation 39.3, RDW Coeff of Aleena 12.3, Plt Count 275, MPV 10.6, Immature Gran % (Auto) 0.200, Neut % (Auto) 40.4 L, Lymph % (Auto) 48.2 H, [place] % (Auto) 8.8, Eos % (Auto) 1.5, Baso % (Auto) 0.9, Absolute Neuts (auto) 3.4, Absolute Lymphs (auto) 4.07, Nucleated RBC % 0 01/15/22 21:25: Sodium 138, Potassium 3.7, Chloride 107, Carbon Dioxide 23.0, Anion Gap 8, BUN 20 H, Creatinine 0.98, Estim Creat Clear Calc 59.75, Est GFR (MDRD) Af Amer 80, Est GFR (MDRD) Non-Af 66, BUN/Creatinine Ratio 20.4 H, Glucose 102, Calcium 9.1, Troponin I High Sens < 3 L 01/15/22 21:25: Serum , Qual NEGATIVE Radiology Impression Head/Neck CTA 01/15/22 22:01 IMPRESSION: Unenhanced CT Brain: No acute intracranial abnormalities. CTA Head: No CT evidence of hemodynamically significant stenosis, aneurysm or malformation. CTA Neck: No CT evidence of hemodynamically significant stenosis, aneurysm or malformation. Individualized dose optimization techniques were used for this CT. at 2237 Reported and signed by: Michele Spivey MD Electronically Signed: Michele Spivey MD at 22:35 EDT Reading Location ID and State: [facility] / [place] Tel , Service support , Assessment & Plan Assessment/Plan (1) Paresthesias: (2) Dizziness: PLAN: 1. Nonspecific subjective symptoms of dizziness, paresthesia and left-upper extremity weakness: Patient is being admitted in observation to rule out TIA/stroke. Her symptoms of dizziness and left upper extremity weakness and paresthesia is much improved. Symptomatic management with Antivert for dizziness. Denies vertigo. MRI brain ordered to rule out stroke tomorrow morning. NIH stroke scale monitoring. Low suspicion for TIA/stroke. Serum magnesium normal. Electrolytes in normal limit. TSH tomorrow AM. 2. Prerenal azotemia: IV fluid Ringer lactate 100 mL/h for 1 L. 3. Anxiety and depression and history of panic attack: Advised to take SSRI as an outpatient. Home medication reconciliation done. She is on oral contraceptive pill. 4. VT prophylaxis, low risk. Early ambulation encouraged. No prophylaxis indicated. Full code. Charges/Coding Visit Charges OBSV E&M: 51104 Initial observation care L3
[2022-01-15 23:30] VITALS: BP 111/72; PULSE 76; RESP 14; TEMP 37.2; O2SAT 96
--- NOTE | 2022-01-15 23:36 | ED.RN ---
admission questions, and med list completed by this rn.
[2022-01-15 23:52] VITALS: BP 129/97; PULSE 85; RESP 23; O2SAT 98
[2022-01-15 23:52] LABS: Magnesium 2.3 mg/dL (1.6-2.6)
[2022-01-16 01:11] VITALS: PULSE 93; BMI 28.4
[2022-01-16 01:15] VITALS: BP 121/79; PULSE 69; RESP 16; TEMP 36.4; O2SAT 100
[2022-01-16] MEDS: Lactated Ringers 1,000 ML 100 ML IV (01:40)
[2022-01-16 01:45] VITALS: BMI 28.4
[2022-01-16 05:15] VITALS: BP 104/73; PULSE 73; RESP 18; TEMP 36.7; O2SAT 97
[2022-01-16 07:20] VITALS: PULSE 85
[2022-01-16 07:25] LABS: Thyroid Stim Hormone (TSH) 1.44 uIU/mL (0.358-3.74)
[2022-01-16 08:19] VITALS: BP 125/80; PULSE 74; RESP 16; TEMP 36.9; O2SAT 100
[2022-01-16 08:25] VITALS: BMI 28.4
[2022-01-16 09:48] LABS: Cholesterol 181 mg/dL (200); High Density Lipoprotein 77 mg/dL; Triglycerides 76 mg/dL; Very Low Density Lipoprotein 15 mg/dL (5-40)
--- NOTE | 2022-01-16 10:10 | MRI_ITS ---
EXAM: MR HEAD WITHOUT INTRAVENOUS CONTRAST CLINICAL INDICATION: left sided numbness/tingling TECHNIQUE: Multiplanar and multisequence MR images of the brain were obtained without intravenous contrast. This report was created using [employer] report generation technology. COMPARISON: None. FINDINGS: BRAIN AND EXTRA-AXIAL SPACES: No diffusion restriction to suspect acute or subacute ischemic infarct. No focal signal abnormalities throughout the brain parenchyma in all of the pulse sequences. Normal ventricles and cisterns. No intra- or extra-axial hemorrhage. No midline shift or mass effects. Posterior fossa structures are normal. SELLA: Unremarkable. Normal sella turcica, pituitary gland, infundibular stalk, optic chiasm and hypothalamus. AUDITORY SYSTEM: Unremarkable. The internal auditory canals are patent. BONES/JOINTS: Unremarkable. No discrete lytic or blastic abnormalities. SINUSES: Unremarkable as visualized. Clear. MASTOID AIR CELLS: Unremarkable as visualized. Clear. ORBITS: Unremarkable as visualized. Both globes, extraocular muscles, optic nerves and retrobulbar fat appear unremarkable. VASCULATURE: Unremarkable as visualized. Normal flow voids in the major intracranial circulation. MRI/Brain without Contrast IMPRESSION: Normal MRI brain without contrast. Electronically Signed: Héctor Vargas MD at 11:17 EDT ,
[2022-01-16 11:34] LABS: D-Dimer Quantitative (DVT/PE) 0.42 FEU/ug/m (0.27-0.49)
--- NOTE | 2022-01-16 12:36 | CT_ITS ---
EXAM: CT ANGIOGRAPHY CHEST WITHOUT AND WITH INTRAVENOUS CONTRAST CLINICAL INDICATION: Chest pain. Rule out PE. TECHNIQUE: Helically acquired angiography images were obtained of the chest without and with intravenous contrast. This CT exam was performed using one or more of the following dose reduction techniques: automated exposure control, adjustment of the mA and/or kV according to patient size, and/or use of iterative reconstruction technique. This report was created using [employer] report generation technology. MIP reconstructed images were created and reviewed. CONTRAST: IV 100mL Isovue-370 COMPARISON: None. FINDINGS: PULMONARY ARTERIES: Unremarkable. Normal in caliber. No evidence of pulmonary embolism. AORTA: Unremarkable. Normal in caliber. No evidence of dissection. GREAT VESSELS OF AORTIC ARCH: Unremarkable. Normal in caliber. No evidence of dissection. LUNGS AND PLEURAL SPACES: Unremarkable. No mass. No consolidation or edema. No pleural effusion or thickening. No pneumothorax. HEART: Unremarkable. Heart size is normal. No pericardial effusion. No signs of right heart strain, ratio of right ventricle to left ventricle measures less than 1. MEDIASTINUM: Unremarkable. No mediastinal or hilar adenopathy. Esophagus is unremarkable. No hiatal hernia. THYROID: Unremarkable. No thyroid lesions. BONES/JOINTS: Unremarkable. No suspicious lytic or blastic abnormality. CT/CTA Chest W/WO Contrast IMPRESSION: Negative CTA chest. Electronically Signed: Héctor Vargas MD at 13:47 EDT ,
--- NOTE | 2022-01-16 12:40 | PCM.DC ---
Discharge Instructions Diet Discharge Diet: No restrictions Activity Discharge Activity: Return to Normal Activity Dressing / Incision Call your doctor if you observe: Shortness of breath, Dizziness and Chest pain Follow Up Care Test Results: Test results from this visit will be discussed in further detail at your follow-up appointment, if applicable. Discharge Plan Admission Admit Date/Time: 01/15/22 23:15 Primary Reason for Your Visit: Stroke ruled out Attending Provider: Trinity Bonilla Primary Care Provider: Montserrat Leon Discharge Orders/Prescriptions Prescriptions: Continued drospirenone-ethinyl estradiol [MARIAN (28)] 3-0.02 mg Tablet 1 tab PO DAILY RF: 0 Referrals / Follow Up: Montserrat Leon MD [Primary Care Provider] - See Referral Note (3-5 Days) Disposition Disposition (needs filled in before D/C Order can be placed): Home, Self Care
--- NOTE | 2022-01-16 12:41 | DS.PCM_ITS ---
Documented by User: Jaycee Headley NP, [employer]MENT OPERATOR-C 01/16/22 12:47 Providers Date of Admission: 01/15/22 Date of Discharge: 01/16/22 Primary Care Physician: Dr. Montserrat Leon MD Reason For Visit: DIZZINESS Diagnosis Discharge Diagnosis (1) Paresthesias: Status: Acute Code(s): R20.2 - Paresthesia of skin (2) Dizziness: Status: Acute Code(s): R42 - Dizziness and giddiness Medications at Discharge Home Medications drospirenone-ethinyl estradiol [MARIAN (28)] 1 tab PO DAILY 01/15/22 Hospital Course Operations None Procedures None Summary of Care Provided Hospital Course: Patient is a 41-year-old female admitted 01/15/2022 due to dizziness, paresthesias, left upper extremity weakness. 1. TIA/CVA ruled out-possibly BPPV. CTA of head and neck and MRI of brain unremarkable. Lipid profile normal. Patient symptoms have resolved. Patient r eports recent increased stress. Do feel this is likely related to untreated anxiety. Follow-up with PCP next week. May try as needed meclizine for recurrent symptoms of dizziness. 2. Atypical chest pain-patient reports pain is sharp in nature and moves to different locations across her chest. She denies associated shortness of breath. She states pain intermittently feels like a heaviness. Troponin negative. EKG without ST-T changes. D-dimer normal. CTA of chest pending and will be reviewed prior to discharge as patient reports pain does radiate to her back and has been persistent over the past week. 3. Anxiety/depression/history of panic attacks-not amendable to SSRI. Outpatien t follow-up. Patient seen and examined prior to discharge. Physical assessment as noted below. Patient is stable for discharge with follow up recommendations as noted above. This patient was seen by CATIE LewisC under the supervision of Dr. Bonilla. Time spent examining patient, reviewing data and subsequent management of care: 16 Minutes Physical Exam Const alert, oriented x3 and no apparent distress Orientation / Consciousness: awake, oriented to person, oriented to place and oriented to time HEENT normocephalic and moist oral mucous membranes Eyes PERRL, EOMs intact bilaterally and conjunctivae normal Neck no lymphadenopathy Resp normal respiratory effort and clear to auscultation bilaterally Cardio regular rate, regular rhythm and no murmurs Peripheral Pulses: pulses 2+ throughout GI normal to inspection, nondistended, normoactive bowel sounds, non-tender and non-distended Extremity normal to inspection Skin no rashes or lesions noted Lesions: no lesions Rashes: no rashes Trauma: no lacerations or abrasions Neuro CN's II-XII intact bilaterally, no focal motor deficits, no sensory deficits noted and deep tendon reflexes 2+ bilaterally Psych mental status grossly normal and affect normal Weight / BMI Weight Weight: 155 lb 6.814 oz Body Mass Index (BMI) 28.4 ABG / Lab / Microbiology Data Result Diagrams: 01/15/22 21:25 01/15/22 21:25 Laboratory: Laboratory Results - last 24 hr 01/15/22 21:25: WBC 8.5, RBC 4.21, Hgb 12.8, Hct 36.8 L, MCV 87.4, MCH 30.4, MCHC 34.8, RDW Std Deviation 39.3, RDW Coeff of Aleena 12.3, Plt Count 275, MPV 10.6, Immature Gran % (Auto) 0.200, Neut % (Auto) 40.4 L, Lymph % (Auto) 48.2 H, Lyman % (Auto) 8.8, Eos % (Auto) 1.5, Baso % (Auto) 0.9, Absolute Neuts (auto) 3.4, Absolute Lymphs (auto) 4.07, Nucleated RBC % 0 01/15/22 21:25: Sodium 138, Potassium 3.7, Chloride 107, Carbon Dioxide 23.0, Anion Gap 8, BUN 20 H, Creatinine 0.98, Estim Creat Clear Calc 59.75, Est GFR (MDRD) Af Amer 80, Est GFR (MDRD) Non-Af 66, BUN/Creatinine Ratio 20.4 H, Glucose 102, Calcium 9.1, Troponin I High Sens < 3 L 01/15/22 21:25: Serum , Qual NEGATIVE 01/15/22 21:25: Magnesium 2.3 01/16/22 06:00: TSH 1.44 01/16/22 06:00: Triglycerides 76, Cholesterol 181, LDL Cholesterol 89, VLDL Cholesterol 15, HDL Cholesterol 77 01/16/22 11:07: D-Dimer Quant (PE/DVT) 0.42 Radiography Diagnostic Testing: Radiology Impression Head/Neck CTA 01/15/22 22:01 IMPRESSION: Unenhanced CT Brain: No acute intracranial abnormalities. CTA Head: No CT evidence of hemodynamically significant stenosis, aneurysm or malformation. CTA Neck: No CT evidence of hemodynamically significant stenosis, aneurysm or malformation. Individualized dose optimization techniques were used for this CT. at 2237 Reported and signed by: Michele Spivey MD Electronically Signed: Michele Spivey MD at 22:35 EDT , Brain MRI 01/16/22 10:10 IMPRESSION: Normal MRI brain without contrast. Electronically Signed: Héctor Vargas MD at 11:17 EDT , D/C Instructions Discharge Diet: No restrictions Call your doctor if you observe: Shortness of breath, Dizziness and Chest pain Meaningful Use Info Meaningful Use Diagnoses (Choose all that apply): None applicable Discharge Plan Admission Admit Date/Time: 01/15/22 23:15 Primary Reason for Your Visit: Stroke ruled out Attending Provider: Trinity Bonilla Primary Care Provider: Montserrat Leon Discharge Orders/Prescriptions Prescriptions: Continued drospirenone-ethinyl estradiol [MARIAN (28)] 3-0.02 mg Tablet 1 tab PO DAILY RF: 0 Referrals / Follow Up: Montserrat Leon MD [Primary Care Provider] - See Referral Note (3-5 Days) Disposition Disposition (needs filled in before D/C Order can be placed): Home, Self Care Documented by User: Dr. Trinity Bonilla MD 01/16/22 16:59 Providers Date of Admission: 01/15/22 Reason For Visit: DIZZINESS Medications at Discharge Home Medications drospirenone-ethinyl estradiol [MARIAN (28)] 1 tab PO DAILY 01/15/22 ABG / Lab / Microbiology Data Result Diagrams: 01/15/22 21:25 01/15/22 21:25 Discharge Plan Admission Admit Date/Time: 01/15/22 23:15 Primary Reason for Your Visit: Stroke ruled out Attending Provider: Trinity Bonilla Primary Care Provider: Montserrat Leon Discharge Orders/Prescriptions Prescriptions: Continued drospirenone-ethinyl estradiol [MARIAN (28)] 3-0.02 mg Tablet 1 tab PO DAILY RF: 0 Referrals / Follow Up: Montserrat Leon MD [Primary Care Provider] - See Referral Note (3-5 Days) Disposition Disposition (needs filled in before D/C Order can be placed): Home, Self Care Charges/Coding Addendum Addendum: Patient seen by Jaycee GARZA under my supervision Patient is a 41-year-old female with a past medical history as outlined was admitted through the ED with a complaint of dizziness and chest tightness and numbness and tingling in her left upper extremity. She had had such similar symptoms about a week before and was told she had a panic attack. EKG showed sinus arrhythmia. She was admitted to be managed for TIA to rule out a stroke. Her symptoms subsequently resolved and CT of the brain and CTA of the head and neck and MRI of the brain were unremarkable. Patient also complained of atypical chest pain, D-dimer was negative. In light of patient being on oral contraceptive pills, a CT of the chest was done which was also negative for any evidence of PE. Patient symptoms was thought to be largely due to anxiety. He remained stable and was discharged home on 01/16/2022 was given a prescription for p.o. meclizine as needed for dizziness. She is follow-up with her primary care doctor in 1 to 2 weeks. Patient was seen and examined prior to discharge. She still complained of the atypical chest pain. Review of systems otherwise negative. Labs and vitals reviewed. Home medication reviewed and reconciled. O/E: Const alert, oriented x3 and no apparent distress Orientation / Consciousness: awake, oriented to person, oriented to place and oriented to time HEENT normocephalic and moist oral mucous membranes Eyes PERRL, EOMs intact bilaterally and conjunctivae normal Neck no lymphadenopathy Resp normal respiratory effort and clear to auscultation bilaterally Cardio regular rate, regular rhythm and no murmurs Peripheral Pulses: pulses 2+ throughout GI normal to inspection, nondistended, normoactive bowel sounds, non-tender and non-distended Extremity normal to inspection Skin no rashes or lesions noted Lesions: no lesions Rashes: no rashes Trauma: no lacerations or abrasions Neuro CN's II-XII intact bilaterally, no focal motor deficits, no sensory deficits noted and deep tendon reflexes 2+ bilaterally Psych mental status grossly normal and affect normal Plan is for discharge home today. Rest as per Jaycee Headley NP-C's notes which I have reviewed and endorsed. Total time I spent on the discharge of the patient today 25 minutes with Jaycee Headley spending 16 minutes making a total of 41 minutes. Visit Charges OBSV E&M: [id number] Observation care discharge
[2022-01-16 14:00] VITALS: BP 119/70; PULSE 78; RESP 16; TEMP 36.8; O2SAT 97
== END 2022-01-16 14:34 | disposition home or self-care (01) ==
LOC: ED 23:04 → PCU 23:26
PROVIDERS: Admitting Provider Internal Medicine; Emergency Provider Emergency Medicine; PCP Family Medicine; Visit Provider Student in an Organized Health Care Education/Training Program
DX: R42 Dizziness and giddiness (principal); I49.8 Other specified cardiac arrhythmias; Z79.3 Long term (current) use of hormonal contraceptives; R20.2 Paresthesia of skin; R79.89 Other specified abnormal findings of blood chemistry; R53.1 Weakness; F41.9 Anxiety disorder, unspecified; F32.A Depression, unspecified; R07.89 Other chest pain
CPT/HCPCS: 36415; 70496; 70498; 70551; 71275; 80048; 80061; 83735; 84443; 84484; 84703; 85025; 85379; 93005; 96360; 96361; 97110; 99218; 99251; 99285; J7030; J7120; Q9967; A4216; G0378; G0463

== ENCOUNTER 2022-01-21 13:00 | Outpatient (CLI) | payer OTHER, SELFPAY ==
--- NOTE | 2022-01-21 13:01 | BI_ITS ---
MAMMOGRAPHY - BILATERAL SCREENING REASON FOR EXAM: Female, 41 years old. Routine annual screening examination. PERTINENT HISTORY: Grandmother with breast cancer. TECHNIQUE: Digital bilateral breast gurmeet (3D mammographic acquisition) in the CC and MLO projections. 2-D mediolateral oblique (MLO) and craniocaudad (CC) views of both breasts were obtained. CAD: Full Field Digital Mammography with Computer Added Detection was performed. COMPARISON: Comparison is made with prior examination dated 01/01/2021. FINDINGS: Breast Composition: The breasts are extremely dense, which lowers the sensitivity of mammography. There are no dominant masses or suspicious calcifications. No other significant abnormalities are identified. There has been no significant change since the prior study. BI/SCRN MAMM (CAD)W/GURMEET BILAT IMPRESSION: Stable bilateral screening mammogram. Yearly follow-up mammogram recommended. (A) ASSESSMENT CATEGORY: BIRADS Category 1: Negative. A letter regarding these results will be sent to the patient by the facility within 30 days. Approximately 10% of breast cancers are not detected by mammography. A normal mammogram should not delay biopsy of a clinically suspicious abnormality. [id number] Electronically Signed: Jose A Jett MD at 14:09 EDT ,
== END 2022-01-21 23:59 | disposition home or self-care (01) ==
LOC: OPBI 13:00
PROVIDERS: PCP Family Medicine; Referring Provider Family Medicine; Visit Provider Family Medicine
DX: Z12.31 Encounter for screening mammogram for malignant neoplasm of breast (principal)
CPT/HCPCS: 77063; 77067

== ENCOUNTER 2022-01-27 10:03 | Outpatient (CLI) | payer OTHER, SELFPAY ==
--- NOTE | 2022-01-27 10:07 | CDU_ITS ---
Reason For Study: Altered mental status Rt. Velocities/BP Lt. Velocities/BP Prox CCA 100.8/26.5 cm/sec. Prox CCA 108.6/26.5 cm/sec. Mid CCA 90.4/25.2 cm/sec. Mid CCA 95.6/25.2 cm/sec. Dist CCA 70.8/23.9 cm/sec. Dist CCA 79.9/21.3 cm/sec. Prox ICA 83.9/25.2 cm/sec. Prox ICA 79.9/27.8 cm/sec. Mid ICA 81.2/33 cm/sec. Mid ICA 68.2/30.4 cm/sec. Dist ICA 86.5/39.5 cm/sec. Dist ICA 85.1/35.6 cm/sec. Rt. ICA/CCA = 0.96. Lt. ICA/CCA = 0.89. Prox ECA 89.1/9.5 cm/sec. Prox ECA 93/16 cm/sec. Rt. Vert. 48.6/16 cm/sec. Lt. Vert. 54.2/22.3 cm/sec. Right Extracranial There is intimal thickening but no significant atherosclerotic plaque noted in the right common carotid artery. There is intimal thickening but no significant atherosclerotic plaque noted in the right internal carotid artery. There is intimal thickening but no significant atherosclerotic plaque noted in the right external carotid artery. Antegrade flow is noted in the right vertebral artery. Left Extracranial There is intimal thickening but no significant atherosclerotic plaque noted in the left common carotid artery. There is intimal thickening but no significant atherosclerotic plaque noted in the left internal carotid artery. There is intimal thickening but no significant atherosclerotic plaque noted in the left external carotid artery. Antegrade flow is noted in the left vertebral artery. Procedure Carotid Duplex [id number]. This is a Carotid Duplex examination using B-mode, color flow and specral Doppler. Exam performed in department. VL/Carotid Duplex Ultrasound Interpretation Summary No significant atherosclerotic plaque or stenosis noted in the internal carotid arteries bilaterally. Flow within the vertebral arteries is antegrade bilaterally. Ordering Physician: Spenser Mcguire Referring Physician: Spenser Mcguire MD Performed By: Trini Merida RVT
== END 2022-01-27 23:59 | disposition home or self-care (01) ==
LOC: CVS 10:03
PROVIDERS: PCP Family Medicine; Visit Provider Family Medicine
DX: R41.82 Altered mental status, unspecified (principal)
CPT/HCPCS: 93880

== ENCOUNTER → 2022-04-13 | Outpatient (CLI) | payer OTHER, SELFPAY ==
[2022-04-13 12:27] LABS: Color, Urine Yellow (Yellow); Glucose, Dipstick Normal (Normal); Ketone-Dipstick Negative (Negative); Leukocyte Esterase-Dipstick 500 /ul (Negative); Nitrite-Dipstick Negative (Negative); Occult Blood-Urine Negative /ul (Negative); Protein-Dipstick Negative (Negative); Urine Bilirubin Dipstick Negative (Negative); Urine Clarity Sl. Cloudy (Clear); Urine Urobilinogen Normal (Normal)
[2022-04-13 12:57] LABS: Microalbumin,Random Urine 5.6 mg/L (NO RANGE EST.); Microalbumin:Creatinine Ratio 5.1 mg/g CRE (<30 mg/g CRE)
== END | disposition home or self-care (01) ==
LOC: MFPLAB 11:02
PROVIDERS: PCP Family Medicine; Referring Provider Family Medicine; Visit Provider Family Medicine
DX: Z00.00 Encounter for general adult medical examination without abnormal findings (principal); N18.2 Chronic kidney disease, stage 2 (mild)
CPT/HCPCS: 36415; 80069; 81002; 82043; 82306; 82570

== ENCOUNTER → 2022-04-21 | Outpatient (CLI) | payer OTHER, SELFPAY ==
[2022-04-21 12:26] LABS: Vitamin D,25 Hydroxy 49.6 ng/mL
[2022-04-21 12:37] LABS: Albumin, Serum 3.7 g/dL (3.2-5.0); BUN 13 mg/dL (7-18); BUN/Creat Ratio 14.7 RATIO (10-20); Calcium,Total 9.5 mg/dL (8.5-10.1); Chloride 106 mmol/L (98-107); Creatinine, Serum 0.88 mg/dL (0.55-1.02); EST Glomerular Filtration Rate 75 mL/min (>60); Est Glom Filt Rate - Afr Amer 90 mL/min (>60); Glucose 89 mg/dL (74-106); Phosphorus 3.2 mg/dL (2.5-4.9); Potassium 3.7 mmol/L (3.5-5.1); Sodium Level 140 mmol/L (136-145)
== END | disposition home or self-care (01) ==
LOC: MFPLAB 10:12
PROVIDERS: PCP Family Medicine; Visit Provider Family Medicine
DX: Z00.00 Encounter for general adult medical examination without abnormal findings (principal); N18.2 Chronic kidney disease, stage 2 (mild)
CPT/HCPCS: 80069; 82306

== ENCOUNTER → 2022-05-04 | Outpatient (CLI) | payer OTHER, SELFPAY ==
[2022-05-04 14:23] LABS: Lyme Ab Screen Interpretation REF LAB
[2022-05-05 08:06] LABS: Syphilis Antibodies Non-reactive
[2022-05-06 15:52] LABS: ANTINUCLEAR ANTIBODIES DIRECT Negative (Negative)
[2022-05-06 17:07] LABS: Endomysial Antibody IgA Negative (Negative); Immunoglobulin A 76 mg/dL (87-352)
[2022-05-06 18:32] LABS: Lyme Scn Total Ab w/Rflx Negative (Negative); t-Transglutaminase IgA <2 U/mL (0-3)
== END | disposition home or self-care (01) ==
LOC: MFPLAB 14:21
PROVIDERS: PCP Family Medicine; Referring Provider Family Medicine; Visit Provider Family Medicine
DX: G43.909 Migraine, unspecified, not intractable, without status migrainosus (principal); R20.2 Paresthesia of skin
CPT/HCPCS: 36415; 82784; 83516; 86038; 86255; 86618; 86780

== ENCOUNTER → 2022-07-19 | Outpatient (CLI) | payer OTHER, SELFPAY ==
--- NOTE | 2022-07-19 15:24 | NEURO ---
NCS and/or EMG Patient Report Ordering Doctor: Spenser Mcguire DATE OF SERVICE: 07/19/22 Indication: Migratory, transient, paresthesias of face and limbs. Occasional lancing pain in the feet, but no fixed deficits. Findings: Nerve conduction studies were performed in the left upper and right lower extremity. The left median motor study recording the abductor pollicis brevis showed a normal amplitude, normal distal latency and normal conduction velocity. The left ulnar motor study recording the abductor digiti minimi showed a normal amplitude, normal distal latency and normal conduction velocity. No conduction block or focal slowing was present across the elbow. The left median sensory response recording digit two showed a normal amplitude, latency and conduction velocity. The left ulnar sensory response recording digit five showed a normal amplitude, latency and conduction velocity. The left radial sensory response recording over the extensor snuff box showed a normal amplitude, latency and conduction velocity. The right peroneal motor study recording the extensor digitorum brevis showed a normal amplitude, normal distal latency and normal conduction velocity. No conduction block or focal slowing was present across the fibular neck. The right tibial motor study recording the abductor hallucis brevis showed a normal amplitude, normal distal latency and normal conduction velocity. Right sural sensory response showed a normal amplitude and conduction velocity. Right superficial peroneal sensory response showed a normal amplitude and conduction velocity. Needle EMG of the left upper and right lower extremity muscles was performed. No denervation was present in any muscle. Motor unit morphology, activation, and recruitment patterns were normal. Impression: This is a normal study. There is no electrophysiologic evidence of peripheral neuropathy. In addition, there was no electrophysiologic evidence of entrapment neuropathy in the examined limbs. Please note: routine nerve conduction studies and needle EMG assess the larger, myelinated motor and sensory fibers. Thus, routine electrodiagnostic studies may be insensitive in detecting a peripheral neuropathy restricted to small fibers alone (i.e., pain, temperature and autonomic fibers). However, most peripheral neuropathies with predominantly small fiber large dysfunction will also involve large fibers to a lesser extent, and will demonstrate abnormalities on electrodiagnostic studies. Thus, clinical correlation is required in the interpretation of this negative electrodiagnostic study if an isolated small fiber neuropathy is considered. Froilan Thompson D.O. Multi Select Codes Neurology Neurology Interp Codes: 85734-77 Musc test done w/n test comp (interp) (Qty:2) and 03993-48 Nr cndj test 11-12 studies (interp)
== END | disposition home or self-care (01) ==
LOC: PSN 13:54
PROVIDERS: PCP Family Medicine; Referring Provider Family Medicine; Visit Provider Family Medicine
DX: R20.2 Paresthesia of skin (principal)
CPT/HCPCS: 95886; 95912

== ENCOUNTER → 2023-04-04 | Outpatient (CLI) | payer OTHER, SELFPAY ==
--- NOTE | 2023-04-04 14:05 | BI_ITS ---
MAMMOGRAPHY - BILATERAL SCREENING REASON FOR EXAM: Female, 42 years old. Routine annual screening examination. PERTINENT HISTORY: Grandmother with breast cancer. TECHNIQUE: Digital bilateral breast gurmeet (3D mammographic acquisition) in the CC and MLO projections. 2-D mediolateral oblique (MLO) and craniocaudad (CC) views of both breasts were obtained. CAD: Full Field Digital Mammography with Computer Added Detection was performed. COMPARISON: Comparison is made with prior study January 21, 2022 and January 01, 2021. FINDINGS: Breast Composition: The breasts are extremely dense, which lowers the sensitivity of mammography. There are no dominant masses or suspicious calcifications. Stable small benign-appearing bilateral axillary lymph nodes. No other significant abnormalities are identified. There has been no significant change since the prior study. BI/SCRN MAMM (CAD)W/GURMEET BILAT IMPRESSION: Stable bilateral screening mammogram. Yearly follow-up mammogram recommended. (A) ASSESSMENT CATEGORY: BIRADS Category 2: Benign. A letter regarding these results will be sent to the patient by the facility within 30 days. Approximately 10% of breast cancers are not detected by mammography. A normal mammogram should not delay biopsy of a clinically suspicious abnormality. [id number] Electronically Signed: Jose A Jett MD at 15:08 EDT ,
== END | disposition home or self-care (01) ==
LOC: OPBI 14:02
PROVIDERS: PCP Family Medicine; Referring Provider Nurse Practitioner Women's Health; Visit Provider Nurse Practitioner Women's Health
DX: Z12.31 Encounter for screening mammogram for malignant neoplasm of breast (principal)
CPT/HCPCS: 77063; 77067

== ENCOUNTER → 2023-10-07 | Outpatient (CLI) | payer OTHER, SELFPAY ==
[2023-10-07 15:24] LABS: Cholesterol 199 mg/dL (200); EST Glomerular Filtration Rate 83 mL/min (>60); Est Glom Filt Rate - Afr Amer 101 mL/min (>60); Glucose 85 mg/dL (74-106); High Density Lipoprotein 86 mg/dL
== END | disposition home or self-care (01) ==
LOC: MFPLAB 12:13
PROVIDERS: PCP Family Medicine; Visit Provider Family Medicine
DX: Z13.220 Encounter for screening for lipoid disorders (principal); N18.2 Chronic kidney disease, stage 2 (mild)
CPT/HCPCS: 36415; 82465; 82565; 82947; 83718

== ENCOUNTER → 2024-09-10 | Outpatient (CLI) | payer OTHER, SELFPAY ==
[2024-09-10 18:15] LABS: Cholesterol 218 mg/dL (200); Glucose 86 mg/dL (74-106); High Density Lipoprotein 96 mg/dL
== END | disposition home or self-care (01) ==
LOC: MFPLAB 16:28
PROVIDERS: PCP Family Medicine; Visit Provider Family Medicine
DX: Z13.89 Encounter for screening for other disorder (principal)
CPT/HCPCS: 36415; 82465; 82947; 83718

== ENCOUNTER → 2024-10-29 | Outpatient (CLI) | payer OTHER, SELFPAY ==
--- NOTE | 2024-10-29 09:54 | RAD_ITS ---
STUDY: X-RAY CHEST REASON FOR EXAM: Female, 44 years old. Chest pain/pressure TECHNIQUE: PA and lateral views of the chest. COMPARISON: None. FINDINGS: The lungs are clear and expanded. There is no demonstrated pleural abnormality. Normal size heart. Normal mediastinum and breonna. Normal visualized pulmonary arteries. Normal visualized aortic arch and descending thoracic aorta. Normal visualized thoracic spine. Normal visualized ribs, clavicles, and shoulders. There is no demonstrated abnormality of the visualized soft tissue structures of the upper abdomen. RAD/Chest PA and Lateral IMPRESSION: Normal x-ray examination of the chest. Electronically Signed: Kanu Hudson MD at 13:23 EST ,
[2024-10-29 10:47] LABS: Hematocrit 39.8 % (37-47); Hemoglobin 12.9 g/dL (12.0-15.0); Mean Corp Hgb Conc 32.4 g/dL (32-36); Mean Corpuscular Hgb 29.1 pg (27.0-32.0); Mean Corpuscular Volume 89.8 fL (81-99); Mean Platelet Vol. 10.6 fl (6.2-12.0); Platelet Count 271 K/mm3 (150-450); RBC Distribution Width CV 12.2 % (11.6-14.6); RBC Distribution Width SD 39.9 fl (35.1-43.9); Red Blood Count 4.43 M/mm3 (4.2-5.4); White Blood Count 9.6 K/mm3 (4.4-11.0)
== END | disposition home or self-care (01) ==
LOC: MTLAB 09:50
PROVIDERS: PCP Family Medicine; Referring Provider Family Medicine; Visit Provider Family Medicine
DX: R09.89 Other specified symptoms and signs involving the circulatory and respiratory systems (principal)
CPT/HCPCS: 36415; 71046; 85027

== ENCOUNTER → 2024-11-15 | Outpatient (CLI) | payer OTHER, SELFPAY ==
--- NOTE | 2024-11-15 07:57 | BI_ITS ---
MAMMOGRAPHY - BILATERAL SCREENING REASON FOR EXAM: Female, 44 years old. Routine annual screening examination. PERTINENT HISTORY: Grandmother with breast cancer. TECHNIQUE: Digital bilateral breast gurmeet (3D mammographic acquisition) in the CC and MLO projections. 2-D mediolateral oblique (MLO) and craniocaudad (CC) views of both breasts were obtained. CAD: Full Field Digital Mammography with Computer Added Detection was performed. COMPARISON: Comparison is made with prior study dated April 04, 2023 and January 21, 2022. FINDINGS: Breast Composition: The breasts are extremely dense, which lowers the sensitivity of mammography. There are no dominant masses or suspicious calcifications. No other significant abnormalities are identified. There has been no significant change since the prior study. BI/SCRN MAMM (CAD)W/GURMEET BILAT IMPRESSION: Stable bilateral screening mammogram. Yearly follow-up mammogram recommended. (A) ASSESSMENT CATEGORY: BIRADS Category 1: Negative. A letter regarding these results will be sent to the patient by the facility within 30 days. Approximately 10% of breast cancers are not detected by mammography. A normal mammogram should not delay biopsy of a clinically suspicious abnormality. [id number] Electronically Signed: Jose A Jett MD at 9:31 EST ,
== END | disposition home or self-care (01) ==
LOC: OPBI 07:56
PROVIDERS: PCP Family Medicine; Referring Provider Family Medicine; Visit Provider Family Medicine
DX: Z12.31 Encounter for screening mammogram for malignant neoplasm of breast (principal)
CPT/HCPCS: 77063; 77067

== ENCOUNTER → 2024-12-18 | Outpatient (CLI) | payer OTHER, SELFPAY ==
[2024-12-18 11:09] LABS: Erythrocyte Sedimentation Rate 5 mm/hr (0-30)
[2024-12-19 12:45] LABS: CRP < 3.00 mg/L (0.0-3.0); Rheumatoid Factor < 10.0 IU/mL (<15)
[2024-12-20 13:08] LABS: Anti-Nuclear Antibody Test Positive (.); CRP, High Sensitivity 0.42 mg/L (0.00-3.00)
== END | disposition home or self-care (01) ==
LOC: MTLAB 08:48
PROVIDERS: PCP Family Medicine; Referring Provider Internal Medicine Pulmonary Disease; Visit Provider Internal Medicine Pulmonary Disease
DX: R07.1 Chest pain on breathing (principal)
CPT/HCPCS: 36415; 85652; 86038; 86140; 86141; 86431

== ENCOUNTER → 2025-01-02 | Outpatient (CLI) | payer OTHER, SELFPAY ==
--- NOTE | 2025-01-02 07:51 | CT_ITS ---
EXAM: CT Chest Without Intravenous Contrast CLINICAL INDICATION: RECURRENT COUGH, CATCHING OF BREATH, AND CHEST WALL PAIN (NEG CXR TECHNIQUE: Axial computed tomography images of the chest without intravenous contrast. This CT exam was performed using one or more of the following dose reduction techniques: automated exposure control, adjustment of the mA and/or kV according to patient size, and/or use of iterative reconstruction technique. COMPARISON: No relevant prior studies available. FINDINGS: LUNGS AND PLEURAL SPACES: Mild lung emphysema. No focal consolidation, pneumothorax or suspicious pulmonary nodules. No significant effusion. HEART: Unremarkable. No cardiomegaly. No significant pericardial effusion. No significant coronary artery calcifications. BONES/JOINTS: Unremarkable. No acute fracture. No dislocation. SOFT TISSUES: Unremarkable. VASCULATURE: Unremarkable. No thoracic aortic aneurysm. LYMPH NODES: Unremarkable. No enlarged lymph nodes. CT/Chest without Contrast IMPRESSION: Mild lung emphysema. No focal consolidation, pneumothorax or suspicious pulmon oz nodules. Reading Location: [facility]
== END | disposition home or self-care (01) ==
PROVIDERS: PCP Family Medicine; Referring Provider Family Medicine; Visit Provider Family Medicine
DX: R06.89 Other abnormalities of breathing (principal); R07.89 Other chest pain; R05.3 Chronic cough
CPT/HCPCS: 71250

== ENCOUNTER → 2025-01-04 | Outpatient (CLI) | payer OTHER, SELFPAY ==
[2025-01-04 17:52] LABS: Absolute Lymphocyte Count 2.82 X10^3/uL (0.83-4.51); Absolute Neutrophil Count 6.7 X10^3/uL (2.0-7.7); Basophil# 0.05 X10^3/uL; Basophil% 0.5 % (0-1); Eosinophil# 0.17 X10^3/uL; Eosinophils% 1.6 % (0-5); Hematocrit 37.7 % (37-47); Hemoglobin 12.5 g/dL (12.0-15.0); Lymphocyte # 2.82 X10^3/ul (0.83-4.51); Mean Corp Hgb Conc 33.2 g/dL (32-36); Mean Corpuscular Hgb 29.3 pg (27.0-32.0); Mean Corpuscular Volume 88.5 fL (81-99); Mean Platelet Vol. 10.6 fl (6.2-12.0); Monocyte# 0.73 X10^3/uL; NRBC Flagged by Analyzer 0 % (0-5); Neutrophil # 6.65 X10^3/uL (2.7-7.7); Neutrophil % 63.5 % (47-70); Platelet Count 286 K/mm3 (150-450); RBC Distribution Width CV 12.3 % (11.6-14.6); Red Blood Count 4.26 M/mm3 (4.2-5.4); White Blood Count 10.5 K/mm3 (4.4-11.0)
== END | disposition home or self-care (01) ==
LOC: MTLAB 14:20
PROVIDERS: PCP Family Medicine; Referring Provider Internal Medicine Pulmonary Disease; Visit Provider Internal Medicine Pulmonary Disease
DX: R05.3 Chronic cough (principal)
CPT/HCPCS: 36415; 85025

== ENCOUNTER → 2025-08-27 | Outpatient (CLI) | payer OTHER, SELFPAY ==
[2025-08-27 18:11] LABS: AST(SGOT) 21 U/L (<=31); Alanine Aminotransfer ALT/SGPT 15 U/L (<=34); Albumin, Serum 4.6 g/dL (3.5-5.0); Alkaline Phosphatase 43 U/L (35-104); Anion Gap 11 (5-15); BUN 15 mg/dL (4-19); BUN/Creat Ratio 20.4 RATIO (10-20); Calcium,Total 9.6 mg/dL (7.6-11.0); Carbon Dioxide 25.1 mmol/L (21.0-32.0); Chloride 101 mmol/L (98-108); Cholesterol 233 mg/dL (<=200); Globulin 2.6 g/dL (2.2-4.2); Glucose 84 mg/dL (70-99); Low Density Lipoprotein Calc. 132 mg/dL; Potassium 3.8 mmol/L (3.3-5.1); Triglycerides 52 mg/dL; Very Low Density Lipoprotein 10 mg/dL (5-40); cholesterol:hdl ratio screen 2.52
== END | disposition home or self-care (01) ==
LOC: MFPLAB 14:55
PROVIDERS: PCP Family Medicine; Visit Provider Family Medicine
DX: Z00.8 Encounter for other general examination (principal)
CPT/HCPCS: 36415; 80053; 80061